=== PATIENT | female | born 1960 | race Caucasian/White ===

== ENCOUNTER 2016-08-31 19:38 | Emergency (ER) | payer MEDICARE, MEDICAID ==
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
[2016-08-31] MEDS ORDERED: ACETAMINOPHEN 325 MG TABLET PO ONE (20:27)
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
[2016-09-01 00:27] VITALS: BP 132/85
== END 2016-08-31 23:10 | disposition home or self-care (01) ==
LOC: ER 19:38
DX: S20.212A Contusion of left front wall of thorax, initial encounter (principal); R51 Headache; M54.2 Cervicalgia; R07.89 Other chest pain; M25.559 Pain in unspecified hip; Y09 Assault by unspecified means; F17.210 Nicotine dependence, cigarettes, uncomplicated
CPT/HCPCS: 99284; 73000; 73502; 72110; 70450; 72125; L0120

== ENCOUNTER 2017-01-14 10:20 | Emergency (ER) | payer MEDICARE, MEDICAID ==
--- NOTE | 2017-01-14 11:47 | ER Document Report ---
ED Hand/Wrist Injury - General Chief Complaint: Hand Pain Stated Complaint: LEFT HAND PAIN Time Seen by Provider: 01/14/17 10:57 Mode of Arrival: Ambulatory Information source: Patient Notes: 56-year-old female presents to ED for complaint of left hand pain 1-2 months. She states it continually getting worse. States she has been to her primary doctor who did not x-ray it or did not do anything and the pain is getting worse. She has a history of bradycardia asthma bronchitis cervical cancer diverticulitis GERD arthritis bursitis OCD anxiety depression and rosacea she also has a history of hep C 10 multiple surgeries. TRAVEL OUTSIDE OF THE [place] IN LAST 30 DAYS: No - HPI Injury to: Thumb - Left Onset: Other Timing: Worse Quality of pain: Sharp, Throbbing Severity: Severe Pain Level: 5 - Related Data Allergies/Adverse Reactions: meloxicam [From Mobic] Allergy (Verified 01/14/17 10:25) methadone [Methadone] Allergy (Verified 01/14/17 10:25) Hives tramadol [Tramadol] Allergy (Verified 01/14/17 10:25) Hives tramadol HCl [From Ultram] Allergy (Verified 01/14/17 10:25) Hives morphine [Morphine] Adverse Reaction (Verified 01/14/17 10:25) itching Past Medical History - General Information source: Patient - Social History Smoking Status: Current Every Day Smoker Cigarette use (# per day): Yes Chew tobacco use (# tins/day): No Smoking Education Provided: Yes - <2 minutes Frequency of alcohol use: Social Drug Abuse: None Lives with: Family Family History: Reviewed & Not Pertinent Patient has suicidal ideation: No Patient has homicidal ideation: No Pulmonary Medical History: Reports: Hx Asthma, Hx Bronchitis, Hx COPD, Hx Pneumonia Neurological Medical History: Reports: None Endocrine Medical History: Reports: None Renal/ Medical History: Reports: Hx Kidney Stones. Denies: Hx Peritoneal Dialysis Malignancy Medical History: Reports: Hx Cervical Cancer GI Medical History: Reports: Hx Diverticulitis, Hx Gastritis, Hx Gastroesophageal Reflux Disease, Hx Hepatitis - c Musculoskeltal Medical History: Reports Hx Arthritis, Reports Hx Musculoskeletal Deformity, Reports Hx Musculoskeletal Trauma - Rotator cuff bilateral , partial toe amputation, Reports Other - Bursitis Skin Medical History: Reports Other - rosea Psychiatric Medical History: Reports: Hx Attention Deficit Hyperactivity Disorder, Hx Bipolar Disorder, Hx Depression, Hx Obsessive Compulsive Disorder Traumatic Medical History: Reports: None Infectious Medical History: Reports: None Past Surgical History: Reports: Hx Section - x1, Hx Cholecystectomy, Hx Hysterectomy, Hx Kidney (Renal Surgery) - stent, Hx Nose Surgery - Sinus repair, Hx Orthopedic Surgery - Right Rotator cuff repair. - Immunizations Immunizations up to date: Yes Hx Diphtheria, Pertussis, Tetanus Vaccination: No - none Review of Systems - Review of Systems Constitutional: No symptoms reported EENT: No symptoms reported Cardiovascular: No symptoms reported Respiratory: No symptoms reported Gastrointestinal: No symptoms reported Genitourinary: No symptoms reported Female Genitourinary: No symptoms reported Musculoskeletal: Other - Thumb and hand pain left Skin: No symptoms reported Hematologic/Lymphatic: No symptoms reported Neurological/Psychological: No symptoms reported -: Yes All other systems reviewed and negative Physical Exam - Vital signs Vitals: Temp Pulse Resp BP Pulse Ox 97.6 F 56 L 20 117/90 H 97 01/14/17 10:29 01/14/17 10:29 01/14/17 10:29 01/14/17 10:29 01/14/17 10:29 Interpretation: Normal - General General appearance: Appears well, Alert - HEENT Head: Normocephalic, Atraumatic Eyes: Normal Pupils: PERRL - Respiratory Respiratory status: No respiratory distress Chest status: Nontender Breath sounds: Normal Chest palpation: Normal - Cardiovascular Rhythm: Regular Heart sounds: Normal auscultation Murmur: No - Abdominal Inspection: Normal Distension: No distension Bowel sounds: Normal Tenderness: Nontender Organomegaly: No organomegaly - Back Back: Normal, Nontender - Extremities General upper extremity: Normal inspection, Normal color, Normal temperature General lower extremity: Normal inspection, Nontender, Normal color, Normal ROM , Normal temperature, Normal weight bearing. No: Umberto's sign Hand: Tender, No evidence of human bite, No evidence of FB, Other - Pain with range of motion to left thumb - Neurological Neuro grossly intact: Yes Cognition: Normal Orientation: AAOx4 Ilya Coma Scale Eye Opening: Spontaneous [place] Coma Scale Verbal: Oriented Ilya Coma Scale Motor: Obeys Commands [place] Coma Scale Total: 15 Speech: Normal Motor strength normal: LUE, RUE, LLE, RLE Sensory: Normal - Psychological Associated symptoms: Normal affect, Normal mood - Skin Skin Temperature: Warm Skin Moisture: Dry Skin Color: Normal Course - Re-evaluation Re-evalutation: 01/14/17 12:18 Discussed x-rays with patient and written report given to patient to follow-up with primary doctor. Patient has arthritis in her thumb she states the other thumb is beginning to feel the same way. - Vital Signs Vital signs: Temp Pulse Resp BP Pulse Ox 97.4 F 52 L 18 113/69 99 01/14/17 12:30 01/14/17 12:30 01/14/17 12:30 01/14/17 12:30 01/14/17 12:30 - Diagnostic Test Radiology reviewed: Image reviewed, Reports reviewed Discharge - Discharge Clinical Impression: Arthritis of carpometacarpal (CMC) joint of left thumb Condition: Stable Disposition: HOME, SELF-CARE Additional Instructions: Arthritis Your symptoms are due to arthritis. Arthritis is an inflammation of the joints. There are many types -- osteoarthritis (due to "wear and tear"), auto- immmune arthritis (such as rheumatoid, lupus, Whit's, and others), and crystal -induced arthritis (such as gout and pseudogout). The physician's examination, combined with laboratory tests, will determine the cause of your arthritis. All types of arthritis are treated with antiinflammatory medications. Other medication may be required for special types of arthritis, or if your problem does not respond to the antiinflammatory medicine. Local warmth may be helpful. Move the involved joints through the full range of motion daily. Mild exercise is usually still possible for most persons with arthritis (ask your physician). Swimming provides good exercise without damaging the joints. Contact the physician if you are worsening in any way. ICE PACKS: Apply ice packs frequently against the painful area. Many different schedules are recommended, such as "20 minutes on, 20 minutes off" or "one hour ice, two hours rest." If you need to work, you may need to go longer between ice treatments. You should plan to have the area ice packed AT LEAST one fourth of the time. The ice should be applied over the wrap, tape, or splint, or over a layer of cloth -- not directly against the skin. Some ice bags have a built-in cloth and can be put directly on the skin. WARM PACKS: After approximately two days, apply gentle heat (such as a heating pad or hot water bottle) for about 20 to 30 minutes about every two hours -- at least four times daily. Warmth and elevation will help you make a more rapid recovery , and will ease the pain considerably. Do not use HOT heat, and never apply heat for longer than 30 minutes. The continuous heat can invisibly damage skin and muscles -- even when no burn is seen on the surface. Damaged muscles can make you MORE sore. FOLLOW-UP CARE: If you have been referred to a physician for follow-up care, call the physician s office for an appointment as you were instructed or within the next two days. If you experience worsening or a significant change in your symptoms, notify the physician immediately or return to the Emergency Department at any time for re-evaluation. Forms: Elevated Blood Pressure, Smoking Cessation Education, Return to School Referrals: LUCIANO KEARNEY MD [Primary Care Provider] - Follow up as needed
--- NOTE | 2017-01-14 12:05 | RADIOLOGY REPORT (SQ) ---
EXAM DESCRIPTION: HAND LEFT 3 VIEWS COMPLETED DATE/TIME: 01/14/2017 11:52 am REASON FOR STUDY: pain COMPARISON: None. EXAM PARAMETERS: NUMBER OF VIEWS: Three views. TECHNIQUE: AP, lateral and oblique radiographic images acquired of the left hand. LIMITATIONS: None. FINDINGS: MINERALIZATION: Normal. BONES: No acute fracture or dislocation. No worrisome bone lesions. Degenerative changes at the 1st c arpometacarpal joint with mild sclerosis. No significant osteophytes. JOINTS: No erosions. No neto-articular osteopenia. No chondrocalcinosis. SOFT TISSUES: No swelling. No calcifications. OTHER: No other significant finding. IMPRESSION: MILD DEGENERATIVE CHANGE AT THE BASE OF THUMB. NO ACUTE FINDINGS. TECHNICAL DOCUMENTATION: JOB ID: [id number] [employer]- All Rights Reserved
--- NOTE | 2017-01-14 12:06 | RADIOLOGY REPORT (SQ) ---
EXAM DESCRIPTION: WRIST LEFT 3 VIEWS COMPLETED DATE/TIME: 01/14/2017 11:52 am REASON FOR STUDY: pain COMPARISON: None. NUMBER OF VIEWS: Four views. TECHNIQUE: AP, lateral, oblique, and scaphoid radiographic images acquired of the left wrist. LIMITATIONS: None. FINDINGS: MINERALIZATION: Normal. BONES: No acute fracture or dislocation. No worrisome bone lesions. Normal alignment. Degenerative ch anges of 1st carpometacarpal joint with sclerosis and osteophytes. JOINTS: No erosions. No neto-articular osteopenia. No chondrocalcinosis. SOFT TISSUES: No swelling. No calcifications. OTHER: No other significant finding. IMPRESSION: DEGENERATIVE CHANGES AT THE BASE OF THE THUMB. NO ACUTE FINDINGS. TECHNICAL DOCUMENTATION: JOB ID: [id number] [employer]- All Rights Reserved
[2017-01-14 12:39] VITALS: BP 113/69
== END 2017-01-14 12:39 | disposition home or self-care (01) ==
LOC: ER 10:20
DX: M18.9 Osteoarthritis of first carpometacarpal joint, unspecified (principal); M79.642 Pain in left hand; F17.210 Nicotine dependence, cigarettes, uncomplicated; J45.909 Unspecified asthma, uncomplicated; K21.9 Gastro-esophageal reflux disease without esophagitis; J44.9 Chronic obstructive pulmonary disease, unspecified; Z87.442 Personal history of urinary calculi; Z88.6 Allergy status to analgesic agent; Z85.41 Personal history of malignant neoplasm of cervix uteri; Z86.19 Personal history of other infectious and parasitic diseases
CPT/HCPCS: 99283

== ENCOUNTER 2017-04-05 16:44 | Emergency (ER) | payer MEDICARE, MEDICAID ==
[2017-04-05] MEDS ORDERED: LIDOCAINE 5% (700 MG) TRANSDERMAL ADH..PATCH TP ONE (17:23)
[2017-04-05] MEDS ORDERED: DEXAMETHASONE SOD PHOS INJ 10 MG/1 ML VIAL IM ONE (17:23)
[2017-04-05] MEDS ORDERED: KETOROLAC TROMETHAMINE 60 MG/2 ML SDV IM ONE (17:23)
--- NOTE | 2017-04-05 17:31 | ER Document Report ---
ED Neck/Back Problem - General Chief Complaint: Hip Pain Stated Complaint: HIP/LEG PAIN Time Seen by Provider: 04/05/17 17:09 Mode of Arrival: Ambulatory Information source: Patient Notes: 56-year-old TRAVEL OUTSIDE OF THE [place] IN LAST 30 DAYS: No - HPI Patient complains to provider of: Lower back Onset: Other - chronic Onset: Chronic Quality of pain: Burning, Sharp, Throbbing Severity: Severe Pain Level: 5 Recent injury: No Associated symptoms: Like prior neck/back pain, Numbness/tingling, Radiation to leg, Lower back pain. denies: Incontinence, Motor loss, Sensory loss, Sweaty, Unable to urinate Exacerbated by: Movement of trunk, Sitting position Relieved by: Nothing Similar symptoms previously: Yes Recently seen / treated by doctor: Yes - Related Data Allergies/Adverse Reactions: meloxicam [From Mobic] Allergy (Verified 01/14/17 10:25) methadone [Methadone] Allergy (Verified 01/14/17 10:25) Hives tramadol [Tramadol] Allergy (Verified 01/14/17 10:25) Hives tramadol HCl [From Ultram] Allergy (Verified 01/14/17 10:25) Hives morphine [Morphine] Adverse Reaction (Verified 01/14/17 10:25) itching Past Medical History - General Information source: Patient - Social History Smoking Status: Current Every Day Smoker - 1 1/2 ppd Cigarette use (# per day): Yes Chew tobacco use (# tins/day): No Smoking Education Provided: Yes - less than 2 min Frequency of alcohol use: None Drug Abuse: None Lives with: Spouse/Significant other Family History: Reviewed & Not Pertinent Patient has suicidal ideation: No Patient has homicidal ideation: No - Medical History Medical History: Other - Past Medical History Cardiac Medical History: Reports: None Pulmonary Medical History: Reports: Hx Asthma, Hx Bronchitis, Hx COPD, Hx Pneumonia EENT Medical History: Reports: None Neurological Medical History: Reports: None Endocrine Medical History: Reports: None Renal/ Medical History: Reports: Hx Kidney Stones Malignancy Medical History: Reports: Hx Cervical Cancer GI Medical History: Reports: Hx Diverticulitis, Hx Gastritis, Hx Gastroesophageal Reflux Disease, Hx Hepatitis - c Musculoskeltal Medical History: Reports Hx Arthritis, Reports Hx Musculoskeletal Deformity, Reports Hx Musculoskeletal Trauma - Rotator cuff bilateral , partial toe amputation Skin Medical History: Reports None Psychiatric Medical History: Reports: Hx Attention Deficit Hyperactivity Disorder, Hx Bipolar Disorder, Hx Depression, Hx Obsessive Compulsive Disorder Traumatic Medical History: Reports: None Infectious Medical History: Reports: Hx Hepatitis - c Past Surgical History: Reports: Hx Section - x1, Hx Cholecystectomy, Hx Hysterectomy, Hx Kidney (Renal Surgery) - stent, Hx Nose Surgery - Sinus repair, Hx Orthopedic Surgery - Right Rotator cuff repair. - Immunizations Immunizations up to date: Yes Hx Diphtheria, Pertussis, Tetanus Vaccination: No - none Review of Systems - Review of Systems Constitutional: No symptoms reported EENT: No symptoms reported Cardiovascular: No symptoms reported Respiratory: No symptoms reported Gastrointestinal: No symptoms reported Genitourinary: No symptoms reported Female Genitourinary: No symptoms reported Musculoskeletal: Back pain, Muscle pain Skin: No symptoms reported Hematologic/Lymphatic: No symptoms reported Neurological/Psychological: No symptoms reported Physical Exam - Vital signs Vitals: Temp Pulse Resp BP Pulse Ox 97.7 F 54 L 16 120/56 L 97 04/05/17 17:01 04/05/17 17:01 04/05/17 17:01 04/05/17 17:01 04/05/17 17:01 Interpretation: Normal - General General appearance: Appears well, Alert - HEENT Head: Normocephalic, Atraumatic Eyes: Normal Pupils: PERRL - Respiratory Respiratory status: No respiratory distress Chest status: Nontender Breath sounds: Normal Chest palpation: Normal - Cardiovascular Rhythm: Regular Heart sounds: Normal auscultation Murmur: No - Abdominal Inspection: Normal Distension: No distension Bowel sounds: Normal Tenderness: Nontender Organomegaly: No organomegaly - Back Back: Normal, Tender. No: Deformity/step-off, CVA tenderness, Vertebra tenderness, Scars, Scoliosis, Wounds - Extremities General upper extremity: Normal inspection, Nontender, Normal color, Normal ROM , Normal temperature General lower extremity: Normal inspection, Nontender, Normal color, Normal ROM , Normal temperature, Normal weight bearing. No: Umberto's sign - Neurological Neuro grossly intact: Yes Cognition: Normal Orientation: AAOx4 Ilya Coma Scale Eye Opening: Spontaneous [place] Coma Scale Verbal: Oriented Ilya Coma Scale Motor: Obeys Commands [place] Coma Scale Total: 15 Speech: Normal Motor strength normal: LUE, RUE, LLE, RLE Sensory: Normal - Psychological Associated symptoms: Normal affect, Normal mood - Skin Skin Temperature: Warm Skin Moisture: Dry Skin Color: Normal Course - Re-evaluation Re-evalutation: 04/05/17 21:26 No signs or symptoms of cauda equina, no loss of sensation, no loss of control of bowel or bladder, no loss of control of legs muscle control. No signs of saddle anesthesia, patient is able to walk with a steady gait. - Vital Signs Vital signs: Temp Pulse Resp BP Pulse Ox 97.9 F 56 L 16 118/50 L 96 04/05/17 18:46 04/05/17 18:46 04/05/17 18:46 04/05/17 18:46 04/05/17 18:46 - Diagnostic Test Radiology reviewed: Image reviewed, Reports reviewed Discharge - Discharge Clinical Impression: Low back pain Qualifiers: Chronicity: chronic Back pain laterality: bilateral Sciatica presence: with sciatica Sciatica laterality: sciatica of left side Qualified Code(s): M54.42 - Lumbago with sciatica, left side Condition: Stable Disposition: HOME, SELF-CARE Instructions: Stretching Exercises for the Back ([facility]), Family Physicians / Practices, Use of [id number] Ibuprofen ([facility]) Additional Instructions: LOW BACK PAIN: Three out of every four people will have an episode of disabling back pain during their lifetime. Most commonly the pain is due to straining of the muscles and ligaments in the low back. Usual treatment includes: (1) Rest on a firm surface. Avoid lying on your stomach. (2) Ice pack the painful area. After a few days, gentle heat may be used intermittently to relax the area, or ice packs can be continued. (3) Medication may be needed -- muscle relaxers and antiinflammatory medicines are commonly used. (4) As the back improves, exercises are prescribed to strengthen the back and abdominal muscles. Your doctor will advise you on the proper care for your back at each stage in your recovery. You may be better in a few days -- or healing may take several weeks. If new symptoms of a "herniated disc" (radiation of pain, numbness, or tingling down the back of the leg or weakness in the leg) occur, you should be re-examined. Further testing may be necessary. Ibuprofen Ibuprofen is an excellent, safe drug for pain control. In addition, it has potent antiinflammatory effects which are beneficial, especially in the treatment of injuries, arthritis, or tendonitis. It's best to take ibuprofen with food. Persons with ulcer disease or allergy to aspirin should notify their physician of this before taking ibuprofen. Take the medication exactly as prescribed. Don't take additional doses unless instructed to do so by your doctor. If you develop wheezing, shortness of breath, hives, faintness, stomach pain, vomiting, or dark black stools, return for re-evaluation at once. ICE PACKS: Apply ice packs frequently against the painful area. Many different schedules are recommended, such as "20 minutes on, 20 minutes off" or "one hour ice, two hours rest." If you need to work, you may need to go longer between ice treatments. You should plan to have the area ice packed AT LEAST one fourth of the time. The ice should be applied over the wrap, tape, or splint, or over a layer of cloth -- not directly against the skin. Some ice bags have a built-in cloth and can be put directly on the skin. WARM PACKS: After approximately two days, apply gentle heat (such as a heating pad or hot water bottle) for about 20 to 30 minutes about every two hours -- at least four times daily. Warmth and elevation will help you make a more rapid recovery , and will ease the pain considerably. Do not use HOT heat, and never apply heat for longer than 30 minutes. The continuous heat can invisibly damage skin and muscles -- even when no burn is seen on the surface. Damaged muscles can make you MORE sore. Toradol Injection You have been given an injection of ketorolac tromethamine (Toradol). This is an excellent, safe drug for pain control. It also has potent antiinflammatory action. You should have significant pain relief within about one hour. Toradol is not addicting and is non-sedating. It does not interfere with driving or work. Call or return if you develop itching, hives, shortness of breath, or rash. STEROID MEDICATION: You have been given an injection of medicine of the cortisone/steroid class. This medication is used to control inflammation or allergy. It is often continued as a pill for a short period of time, until the acute process subsides. There are usually no side effects from short-term use of cortisone-like medications. Some persons feel an increased sense of well-being and are not sleepy at bedtime. Long-term use of cortisone medications is best avoided, unless required for a severe condition. If your condition does not remit, or relapses after the course of corticosteroid medication, you should consult your physician. FOLLOW-UP CARE: If you have been referred to a physician for follow-up care, call the physician s office for an appointment as you were instructed or within the next two days. If you experience worsening or a significant change in your symptoms, notify the physician immediately or return to the Emergency Department at any time for re-evaluation. Prescriptions: Lidocaine [Lidoderm 5% (700 mg) Transdermal Patch] 1 patch TP DAILY #30 adh..patch Forms: Smoking Cessation Education Referrals: LUCIANO KEARNEY MD [Primary Care Provider] - Follow up as needed
--- NOTE | 2017-04-05 18:08 | RADIOLOGY REPORT (SQ) ---
EXAM DESCRIPTION: L SPINE WHOLE COMPLETED DATE/TIME: 04/05/2017 5:53 pm REASON FOR STUDY: low back pain radiating down left leg COMPARISON: 04/10/2017 NUMBER OF VIEWS: Five views including obliques. TECHNIQUE: AP, lateral, oblique, and sacral radiographic images acquired of the lumbar spine. LIMITATIONS: None. FINDINGS: MINERALIZATION: Normal. SEGMENTATION: Normal. No transitional anatomy. ALIGNMENT: Normal. VERTEBRAE: Maintained height. No fracture or worrisome bone lesion. DISCS: Multilevel disc space narrowing with osteophytes. POSTERIOR ELEMENTS: Pedicles and facets are intact. No pars defect or posterior arch defects. Facet arthropathy is present. HARDWARE: None in the spine. PARASPINAL SOFT TISSUES: Normal. PELVIS: Intact as visualized. No fractures or worrisome bone lesions. SI joints intact. OTHER: No other significant finding. IMPRESSION: SPONDYLOSIS WITHOUT BONE LESION OR FRACTURE. TECHNICAL DOCUMENTATION: JOB ID: [id number] [employer]- All Rights Reserved
[2017-04-05 18:49] VITALS: BP 118/50
== END 2017-04-05 18:48 | disposition home or self-care (01) ==
LOC: ER 16:44
DX: G89.29 Other chronic pain (principal); M54.42 Lumbago with sciatica, left side; J44.9 Chronic obstructive pulmonary disease, unspecified; F17.210 Nicotine dependence, cigarettes, uncomplicated; Z71.6 Tobacco abuse counseling; Z88.5 Allergy status to narcotic agent; Z88.8 Allergy status to other drugs, medicaments and biological substances; Z85.41 Personal history of malignant neoplasm of cervix uteri
CPT/HCPCS: 99283; 96372; 72110; J1885; J1100

== ENCOUNTER 2017-08-20 09:21 | Emergency (ER) | payer MEDICARE, MEDICAID ==
[2017-08-20 09:28] VITALS: BP 117/65
[2017-08-20] MEDS ORDERED: CETIRIZINE 10 MG TABLET PO ONE (10:09)
[2017-08-20] MEDS ORDERED: PSEUDOEPHEDRINE HCL 30 MG TABLET PO ONE (10:09)
[2017-08-20] MEDS ORDERED: GUAIFENESIN 600 MG TABLET.SA PO ONE (10:09)
--- NOTE | 2017-08-20 10:13 | ER Document Report ---
ED ENT - General Chief Complaint: Pain All Over Stated Complaint: BODY ACHES Time Seen by Provider: 08/20/17 09:58 Mode of Arrival: Ambulatory Information source: Patient Notes: 57-year-old female presents to ED for complaint of body aches all over runny nose cough congestion. She states she has taken some Tylenol and Flonase for her cough and cold symptoms but she thought she needed some antibiotics. I evaluated her and ask her about any fevers. She states she has not taken her temperature and she does not have any fever at this time. TRAVEL OUTSIDE OF THE [place] IN LAST 30 DAYS: No - HPI Patient complains to provider of: Nose problem, Throat problem Onset: Other Quality of pain: Achy Severity: Moderate Pain Level: 4 Context: Recent Illness Location of pain: Nose, Sinus, Throat Associated symptoms: Congestion, Cough, Runny nose, Sinus pain, Sinus drainage. denies: Chills, Fever Similar symptoms previously: Yes Recently seen / treated by doctor: No - Related Data Allergies/Adverse Reactions: meloxicam [From Mobic] Allergy (Verified 08/20/17 09:25) methadone [Methadone] Allergy (Verified 08/20/17 09:25) Hives pregabalin [From Lyrica] Allergy (Verified 08/20/17 09:41) morphine [Morphine] Adverse Reaction (Verified 08/20/17 09:25) itching Past Medical History - General Information source: Patient - Social History Smoking Status: Current Every Day Smoker Cigarette use (# per day): Yes - 1/2-1 pack per day Chew tobacco use (# tins/day): No Smoking Education Provided: Yes - 3 minutes Frequency of alcohol use: None Drug Abuse: None Lives with: Spouse/Significant other Family History: Reviewed & Not Pertinent Patient has suicidal ideation: No Patient has homicidal ideation: No - Past Medical History Cardiac Medical History: Reports: None Pulmonary Medical History: Reports: Hx Asthma, Hx Bronchitis, Hx COPD, Hx Pneumonia EENT Medical History: Reports: None Neurological Medical History: Reports: None Endocrine Medical History: Reports: None Renal/ Medical History: Reports: Hx Kidney Stones Malignancy Medical History: Reports: Hx Cervical Cancer GI Medical History: Reports: Hx Diverticulitis, Hx Gastritis, Hx Gastroesophageal Reflux Disease, Hx Hepatitis - c Musculoskeltal Medical History: Reports Hx Arthritis, Reports Hx Musculoskeletal Deformity, Reports Hx Musculoskeletal Trauma - Rotator cuff bilateral , partial toe amputation Skin Medical History: Reports None Psychiatric Medical History: Reports: Hx Attention Deficit Hyperactivity Disorder, Hx Bipolar Disorder, Hx Depression, Hx Obsessive Compulsive Disorder Traumatic Medical History: Reports: None Infectious Medical History: Reports: Hx Hepatitis - c Past Surgical History: Reports: Hx Section - x1, Hx Cholecystectomy, Hx Hysterectomy, Hx Kidney (Renal Surgery) - stent, Hx Nose Surgery - Sinus repair, Hx Orthopedic Surgery - Right Rotator cuff repair. - Immunizations Immunizations up to date: Yes Hx Diphtheria, Pertussis, Tetanus Vaccination: No - none Review of Systems - Review of Systems Constitutional: No symptoms reported EENT: Nose congestion, Nose discharge, Sinus pressure, Sinus discharge, Throat pain Cardiovascular: No symptoms reported Respiratory: Cough. denies: Short of breath, Wheezing Gastrointestinal: No symptoms reported Genitourinary: No symptoms reported Female Genitourinary: No symptoms reported Musculoskeletal: No symptoms reported Skin: No symptoms reported Hematologic/Lymphatic: No symptoms reported Neurological/Psychological: No symptoms reported -: Yes All other systems reviewed and negative Physical Exam - Vital signs Vitals: Temp Pulse Resp BP Pulse Ox 97.9 F 68 18 117/65 95 08/20/17 09:28 08/20/17 09:28 08/20/17 09:28 08/20/17 09:28 08/20/17 09:28 Interpretation: Normal - General General appearance: Appears well, Alert - HEENT Head: Normocephalic, Atraumatic Eyes: Normal Pupils: PERRL Ears: Normal External canal: Normal Tympanic membrane: Normal Sinus: Mastoid, Maxillary, Tenderness Nasal: Purulent discharge, Swelling Mouth/Lips: Normal Mucous membranes: Normal Pharynx: Post nasal drainage Neck: Normal - Respiratory Respiratory status: No respiratory distress Chest status: Nontender Breath sounds: Nonproductive cough. No: Rales, Rhonchi, Stridor, Wheezing Chest palpation: Normal - Cardiovascular Rhythm: Regular Heart sounds: Normal auscultation Murmur: No - Abdominal Inspection: Normal Distension: No distension Bowel sounds: Normal Tenderness: Nontender Organomegaly: No organomegaly - Back Back: Normal, Nontender - Extremities General upper extremity: Normal inspection, Nontender, Normal color, Normal ROM , Normal temperature General lower extremity: Normal inspection, Nontender, Normal color, Normal ROM , Normal temperature, Normal weight bearing. No: Umberto's sign - Neurological Neuro grossly intact: Yes Cognition: Normal Orientation: AAOx4 [place] Coma Scale Eye Opening: Spontaneous [place] Coma Scale Verbal: Oriented [place] Coma Scale Motor: Obeys Commands [place] Coma Scale Total: 15 Speech: Normal Motor strength normal: LUE, RUE, LLE, RLE Sensory: Normal - Psychological Associated symptoms: Normal affect, Normal mood - Skin Skin Temperature: Warm Skin Moisture: Dry Skin Color: Normal Course - Re-evaluation Re-evalutation: 08/20/17 15:55 Assessment was consistent with a upper respiratory infection. Patient was given instructions concerning upper respiratory infections and treatment. Patient was discharged home to follow-up with her primary doctor. - Vital Signs Vital signs: Temp Pulse Resp BP Pulse Ox 97.9 F 68 18 117/65 95 08/20/17 09:28 08/20/17 09:28 08/20/17 09:28 08/20/17 09:28 08/20/17 09:28 Discharge - Discharge Clinical Impression: URI (upper respiratory infection) Qualifiers: URI type: unspecified URI Qualified Code(s): J06.9 - Acute upper respiratory infection, unspecified Condition: Stable Disposition: HOME, SELF-CARE Additional Instructions: UPPER RESPIRATORY ILLNESS: You have a viral infection of the respiratory passages -- a "cold." This common infection causes nasal congestion, drainage, and often sore throat and cough. It is highly contagious. The disease usually lasts about 10 to 14 days. There is no "cure" for the viral infection -- it must run its course. If there is a complication, such as bacterial infection in the nose, sinuses, middle ear, or bronchial tubes, antibiotics may be required. The antibiotics won't affect the virus. Drink plenty of fluids. A humidifier may help. An expectorant medication or decongestant may make you more comfortable. Use acetaminophen or ibuprofen for fever or aches. See the doctor if fever persists over two days, if there is any significant worsening of your symptoms, or if you simply fail to improve as expected. DECONGESTANT MEDICATION: A decongestant medicine has been suggested. Often this medicine is combined in the same tablet with an antihistamine or expectorant. This type of medicine is helpful in treating a bad cold or sinus condition, as well as in treatment of the nasal congestion of hay fever. It is not of much benefit for lung infections. Decongestant medicines are related to stimulants. They can cause an increase in blood pressure and heart rate. Persons with heart disease and high blood pressure should not take decongestants without discussing this with the physician. If you develop palpitations, chest pain, headache, or tremors, stop the medicine and consult your physician. COUGH-SUPPRESSANT & EXPECTORANT MEDICATION: You are to use a cough medication as needed for relief of symptoms. This medicine is a combination of an expectorant (to make the mucous thinner and more easily "coughed up") and a cough suppressant (to reduce the frequency of coughing). The cough-suppressant medicine is related to narcotics. You may experience mild nausea and sleepiness. Some patients who are very sensitive to narcotics may have stomach pain from this medicine. Taking the medicine with food reduces these side effects. Do not drive or work with machinery until you know how this medicine affects you. The expectorant should have no side effects. Iodine-containing expectorants (such as organidin) should not be taken by persons with active thyroid disease unless approved by your doctor. Call the doctor if you develop shortness of breath, hives, rash, itching, lightheadedness, or severe nausea and vomiting. USE OF ACETAMINOPHEN (Tylenol): Acetaminophen may be taken for pain relief or fever control. It's much safer than aspirin, offering a wider range of "safe" dosages. It is safe during . Some brand names are Tylenol, Panadol, Datril, Anacin 3, Tempra, and Liquiprin. Acetaminophen can be repeated every four hours. The following are maximum recommended dosages: >89 pounds or adults 650 mg to 900 mg Acetaminophen can be repeated every four hours. Maximum dose not to exceed 4000 mg a day. SMOKING: If you smoke, you should stop smoking. The tar and chemicals in cigarette smoke are harmful. Smoking has been shown to cause: emphysema chronic bronchitis lung cancer mouth and throat cancer stomach and pancreas cancer premature aging defects In addition, smoking increases ear and lung infections in children of smokers. FOLLOW-UP CARE: If you have been referred to a physician for follow-up care, call the physician s office for an appointment as you were instructed or within the next two days. If you experience worsening or a significant change in your symptoms, notify the physician immediately or return to the Emergency Department at any time for re-evaluation. Forms: Smoking Cessation Education Referrals: ZULLY JOVEL PA [Primary Care Provider] - Follow up as needed
== END 2017-08-20 10:22 | disposition home or self-care (01) ==
LOC: ER 09:21
DX: J06.9 Acute upper respiratory infection, unspecified (principal); M79.1 Myalgia; R09.89 Other specified symptoms and signs involving the circulatory and respiratory systems; R05 Cough; F17.210 Nicotine dependence, cigarettes, uncomplicated
CPT/HCPCS: 99283; A9270 ×3

== ENCOUNTER 2017-10-20 19:35 | Emergency (ER) | payer MEDICARE, MEDICAID ==
--- NOTE | 2017-10-20 20:13 | ER Document Report ---
ED Medical Screen (RME) - General Chief Complaint: Dog Bite Stated Complaint: DOG BITE/LEFT ARM Time Seen by Provider: 10/20/17 20:12 Mode of Arrival: Ambulatory Information source: Patient Notes: 57 yr old female presents with dog bite to left arm, hx of hep c I have greeted and performed a rapid initial assessment of this patient. A comprehensive ED assessment and evaluation of the patient, analysis of test results and completion of the medical decision making process will be conducted by additional ED providers. Noted by PCT that when undressing wound began having arterial bleed will straight back patient TRAVEL OUTSIDE OF THE [place] IN LAST 30 DAYS: No - Related Data Allergies/Adverse Reactions: meloxicam [From Mobic] Allergy (Verified 08/20/17 09:25) methadone [Methadone] Allergy (Verified 08/20/17 09:25) Hives pregabalin [From Lyrica] Allergy (Verified 08/20/17 09:41) morphine [Morphine] Adverse Reaction (Verified 08/20/17 09:25) itching Past Medical History - Social History Family history: Reviewed & Not Pertinent Pulmonary Medical History: Reports: Hx Asthma, Hx Bronchitis, Hx COPD, Hx Pneumonia Renal/ Medical History: Reports: Hx Kidney Stones. Denies: Hx Peritoneal Dialysis Malignancy Medical History: Reports: Hx Cervical Cancer GI Medical History: Reports: Hx Diverticulitis, Hx Gastritis, Hx Gastroesophageal Reflux Disease, Hx Hepatitis - c Musculoskeltal Medical History: Reports Hx Arthritis, Reports Hx Musculoskeletal Deformity, Reports Hx Musculoskeletal Trauma - Rotator cuff bilateral , partial toe amputation Psychiatric Medical History: Reports: Hx Attention Deficit Hyperactivity Disorder, Hx Bipolar Disorder, Hx Depression, Hx Obsessive Compulsive Disorder Infectious Medical History: Reports: Hx Hepatitis - c Past Surgical History: Reports: Hx Section - x1, Hx Cholecystectomy, Hx Hysterectomy, Hx Kidney (Renal Surgery) - stent, Hx Nose Surgery - Sinus repair, Hx Orthopedic Surgery - Right Rotator cuff repair. - Immunizations Immunizations up to date: Yes Hx Diphtheria, Pertussis, Tetanus Vaccination: No - none Physical Exam - Vital signs Vitals: Temp Pulse Resp BP Pulse Ox 97.7 F 58 L 18 118/61 96 10/20/17 19:54 10/20/17 19:54 10/20/17 19:54 10/20/17 19:54 10/20/17 19:54 Course - Vital Signs Vital signs: Temp Pulse Resp BP Pulse Ox 97.7 F 58 L 18 118/61 96 10/20/17 19:54 10/20/17 19:54 10/20/17 19:54 10/20/17 19:54 10/20/17 19:54
[2017-10-20] MEDS ORDERED: DIPH/PERTUSS(ACELL)/TETANUS VAC/PF 0.5 ML SYR (>=10YO) IM ONE (20:34)
[2017-10-20] MEDS ORDERED: LIDOCAINE 1%/EPINEPHRINE INJ 20 ML VIAL INJ ONE (20:35)
[2017-10-20] MEDS ORDERED: AMOXICILLIN TR/POT CLAVULANATE 500-125 MG TAB PO ONE (20:36)
[2017-10-20] MEDS ORDERED: AMOXICILLIN TRIHYDRATE 500 MG CAPSULE PO ONE (20:37)
--- NOTE | 2017-10-20 20:38 | ER Document Report ---
ED Animal Bite - General Chief Complaint: Dog Bite Stated Complaint: DOG BITE/LEFT ARM Time Seen by Provider: 10/20/17 20:12 Mode of Arrival: Ambulatory Notes: Patient is a 57-year-old female comes emergency department for chief complaint of laceration to her left forearm from dog bite. Dog is a pit bull, her personal pet, dog is up-to-date on vaccinations including rabies. Patient is not up-to-date on her tetanus within 5 years. Patient denies any other locations of injury. Patient has history of hepatitis C. TRAVEL OUTSIDE OF THE [place] IN LAST 30 DAYS: No - Related Data Allergies/Adverse Reactions: meloxicam [From Mobic] Allergy (Verified 08/20/17 09:25) methadone [Methadone] Allergy (Verified 08/20/17 09:25) Hives pregabalin [From Lyrica] Allergy (Verified 08/20/17 09:41) morphine [Morphine] Adverse Reaction (Verified 08/20/17 09:25) itching Past Medical History - General Information source: Patient - Social History Smoking Status: Never Smoker Frequency of alcohol use: None Lives with: Family Family History: Reviewed & Not Pertinent Pulmonary Medical History: Reports: Hx Asthma, Hx Bronchitis, Hx COPD, Hx Pneumonia Renal/ Medical History: Reports: Hx Kidney Stones. Denies: Hx Peritoneal Dialysis Malignancy Medical History: Reports: Hx Cervical Cancer GI Medical History: Reports: Hx Diverticulitis, Hx Gastritis, Hx Gastroesophageal Reflux Disease, Hx Hepatitis - c Musculoskeltal Medical History: Reports Hx Arthritis, Reports Hx Musculoskeletal Deformity, Reports Hx Musculoskeletal Trauma - Rotator cuff bilateral , partial toe amputation Psychiatric Medical History: Reports: Hx Attention Deficit Hyperactivity Disorder, Hx Bipolar Disorder, Hx Depression, Hx Obsessive Compulsive Disorder Infectious Medical History: Reports: Hx Hepatitis - c Past Surgical History: Reports: Hx Section - x1, Hx Cholecystectomy, Hx Hysterectomy, Hx Kidney (Renal Surgery) - stent, Hx Nose Surgery - Sinus repair, Hx Orthopedic Surgery - Right Rotator cuff repair. - Immunizations Immunizations up to date: No Hx Diphtheria, Pertussis, Tetanus Vaccination: Yes Review of Systems - Review of Systems Constitutional: No symptoms reported EENT: No symptoms reported Cardiovascular: No symptoms reported Respiratory: No symptoms reported Gastrointestinal: No symptoms reported Genitourinary: No symptoms reported Female Genitourinary: No symptoms reported Musculoskeletal: See HPI Skin: See HPI Hematologic/Lymphatic: No symptoms reported Neurological/Psychological: No symptoms reported Physical Exam - Vital signs Vitals: Temp Pulse Resp BP Pulse Ox 97.7 F 58 L 18 118/61 96 10/20/17 19:54 10/20/17 19:54 10/20/17 19:54 10/20/17 19:54 10/20/17 19:54 - General General appearance: Anxious In distress: None - HEENT Head: Normocephalic, Atraumatic Eyes: Normal Pupils: PERRL - Respiratory Respiratory status: No respiratory distress Breath sounds: Normal - Cardiovascular Rhythm: Regular. No: Tachycardia Heart sounds: Normal auscultation, S1 appreciated, S2 appreciated - Abdominal Inspection: Normal Tenderness: Nontender - Back Back: Normal, Nontender. No: Tender - Extremities General upper extremity: Other - Left upper forearm over the volar surface there is a vertical semi-linear jagged partial-thickness laceration that is 4 cm in length and also about 1 cm wide, bleeding heavily. Normal elbow exam, wrist exam, normal junior mechanical engineer, normal pulse and sensation, normal capillary refill. General lower extremity: Normal inspection, Nontender, Normal strength, Normal temperature Course - Re-evaluation Re-evalutation: Tourniquet was placed because of possible arterial bleed, this was tightened and then slowly released while the wound was observed, wound does bleed heavily but no arterial spurting is seen on my evaluation. Swelling and pain of the area, x-ray will be performed, tetanus updated, wound will be cleansed thoroughly and closed because of gaping wound and bleeding. Treating with Augmentin. X-ray with no foreign body or fracture. Wound flushed, cleansed, closed. No evidence of large vessel, tendon, or nerve injury. Bulky dressing applied but only small oozing occurring from the abrasions over the surface and no additional swelling or additional bleeding noted. Patient placed on Augmentin. Wound was rechecked and has stopped bleeding, no significant swelling, no evidence of developing compartment syndrome. Patient will be discharged with return precautions. I discussed with patient that there is a higher risk of infection because the wound had to be closed because of her bleeding, I discussed monitoring, wound care, follow-up, and return precautions. Patient states understanding and agreement. - Vital Signs Vital signs: Temp Pulse Resp BP Pulse Ox 97.9 F 65 18 126/82 H 97 10/20/17 22:43 10/20/17 22:43 10/20/17 22:43 10/20/17 22:43 10/20/17 22:43 Procedures - Laceration/Wound Repair Left forearm Wound length (cm): 4 Wound's Depth, Shape: Irregular Laceration pre-procedure: Sterile PPE donned, Sterile drapes applied, Shur- Clens applied Anesthetic type: 1% Lidocaine w/epi Volume Anesthetic (mLs): 8 Wound explored: Clean, No foreign body removed Irrigated w/ Saline (mLs): 60 Wound Debrided: Minimal Wound Repaired With: Sutures Suture Size/Type: 4:0, Nylon Number of Sutures: 10 Layer Closure?: No Post-procedure wound care: Sterile dressing applied Post-procedure NV exam normal: Yes Complications: No Discharge - Discharge Clinical Impression: Dog bite Qualifiers: Encounter type: initial encounter Qualified Code(s): W54.0XXA - Bitten by dog, initial encounter Laceration of left forearm Qualifiers: Encounter type: initial encounter Qualified Code(s): S51.812A - Laceration without foreign body of left forearm, initial encounter Condition: Stable Disposition: HOME, SELF-CARE Additional Instructions: Take antibiotic as prescribed to completion. Because of the bleeding of the wound unfortunately the wound had to be closed, as result infection risk is higher, keep wound clean, keep topical antibiotic and a thin film of the area, keep clean dressing over the area. Check regularly , return immediately if you worsen in anyway including developing or spreading redness, discolored drainage, swelling, fever 100.4 or greater, or any other concerning symptoms. Prescriptions: Amox Tr/Potassium Clavulanate [Augmentin 875-125 Tablet] 1 tab PO BID 7 Days tablet
[2017-10-20] MEDS ORDERED: ONDANSETRON 4 MG TAB.RAPDIS PO ONE (20:40)
--- NOTE | 2017-10-20 21:03 | RADIOLOGY REPORT (SQ) ---
EXAM DESCRIPTION: FOREARM LEFT COMPLETED DATE/TIME: 10/20/2017 8:50 pm REASON FOR STUDY: dog bite, pain, swelling COMPARISON: None. NUMBER OF VIEWS: Two views. TECHNIQUE: Two radiographic images acquired of the left forearm, including elbow and wrist in at [facility] one projection. LIMITATIONS: None. FINDINGS: MINERALIZATION: Normal. BONES: No acute fracture. No worrisome bone lesions. SOFT TISSUES: No obvious foreign body. Soft tissue defect. OTHER: No other significant finding. IMPRESSION: No foreign body. No fracture. Soft tissue defect. TECHNICAL DOCUMENTATION: JOB ID: [id number] [employer]- All Rights Reserved Reading location - IP/workstation name: [email or web address]
[2017-10-20] MEDS ORDERED: HYDROCODONE/ACETAMINOPHEN 5-325 MG (6 TAB/ER DISP) PO PRN (22:22)
[2017-10-20 22:46] VITALS: BP 126/82
== END 2017-10-20 22:43 | disposition home or self-care (01) ==
LOC: ER 19:35
DX: S51.852A Open bite of left forearm, initial encounter (principal); W54.0XXA Bitten by dog, initial encounter; Y93.K9 Activity, other involving animal care; Y92.009 Unspecified place in unspecified non-institutional (private) residence as the place of occurrence of the external cause; J44.9 Chronic obstructive pulmonary disease, unspecified; Z88.5 Allergy status to narcotic agent; Z88.8 Allergy status to other drugs, medicaments and biological substances; Z85.41 Personal history of malignant neoplasm of cervix uteri
CPT/HCPCS: 99283; 90471; 73090; 90715; 12002; A9270 ×4; J3490; S0119

== ENCOUNTER 2017-10-28 18:03 | Emergency (ER) | payer MEDICARE, MEDICAID ==
[2017-10-28] MEDS ORDERED: PIPERACILLIN/TAZOBACTAM 3.375 GM VIAL IV ONE (18:56)
--- NOTE | 2017-10-28 18:58 | ER Document Report ---
ED Medical Screen (RME) - General Chief Complaint: Arm Pain Stated Complaint: ARM PAIN Time Seen by Provider: 10/28/17 18:56 Mode of Arrival: Ambulatory Information source: Patient Notes: Patient was bit by a pit bull approximately 8 days ago. Patient had the wound repaired here that day. Patient has been taking Augmentin at home. Patient presents with warmth erythema and swelling to the left forearm. Exam appears consistent with wound abscess and cellulitis. TRAVEL OUTSIDE OF THE [place] IN LAST 30 DAYS: No - Related Data Allergies/Adverse Reactions: meloxicam [From Mobic] Allergy (Verified 10/28/17 18:05) methadone [Methadone] Allergy (Verified 10/28/17 18:05) Hives pregabalin [From Lyrica] Allergy (Verified 10/28/17 18:05) morphine [Morphine] Adverse Reaction (Verified 10/28/17 18:05) itching Past Medical History - Social History Family history: Reviewed & Not Pertinent Pulmonary Medical History: Reports: Hx Asthma, Hx Bronchitis, Hx COPD, Hx Pneumonia Renal/ Medical History: Reports: Hx Kidney Stones. Denies: Hx Peritoneal Dialysis Malignancy Medical History: Reports: Hx Cervical Cancer GI Medical History: Reports: Hx Diverticulitis, Hx Gastritis, Hx Gastroesophageal Reflux Disease, Hx Hepatitis - c Musculoskeltal Medical History: Reports Hx Arthritis, Reports Hx Musculoskeletal Deformity, Reports Hx Musculoskeletal Trauma - Rotator cuff bilateral , partial toe amputation Psychiatric Medical History: Reports: Hx Attention Deficit Hyperactivity Disorder, Hx Bipolar Disorder, Hx Depression, Hx Obsessive Compulsive Disorder Infectious Medical History: Reports: Hx Hepatitis - c Past Surgical History: Reports: Hx Section - x1, Hx Cholecystectomy, Hx Hysterectomy, Hx Kidney (Renal Surgery) - stent, Hx Nose Surgery - Sinus repair, Hx Orthopedic Surgery - Right Rotator cuff repair. - Immunizations Immunizations up to date: No Hx Diphtheria, Pertussis, Tetanus Vaccination: Yes Physical Exam - Vital signs Vitals: Temp Pulse Resp BP Pulse Ox 97.7 F 55 L 18 106/54 L 97 10/28/17 18:15 10/28/17 18:15 10/28/17 18:15 10/28/17 18:15 10/28/17 18:15 Course - Vital Signs Vital signs: Temp Pulse Resp BP Pulse Ox 97.7 F 55 L 18 106/54 L 97 10/28/17 18:15 10/28/17 18:15 10/28/17 18:15 10/28/17 18:15 10/28/17 18:15
[2017-10-28 19:50] LABS: ABSOLUTE BASOPHILS # (AUTO) 0.1 10^3/uL (0.0-0.2); ABSOLUTE EOSINOPHILS # (AUTO) 0.5 10^3/uL (0.0-0.6); ABSOLUTE LYMPHOCYTES (AUTO) 3.4 10^3/uL (0.5-4.7); ABSOLUTE MONOCYTES (AUTO) 0.6 10^3/uL (0.1-1.4); ABSOLUTE NEUT (AUTO) 2.6 10^3/uL (1.7-8.2); EOSINOPHILS % (AUTO) 6.8 % (0-6); HEMATOCRIT 37.1 % (36.0-47.0); HEMOGLOBIN 12.9 g/dL (12.0-15.5); LYMPHOCYTES % (AUTO) 47.7 % (13-45); MEAN CORPUSCULAR HGB CONC 34.7 g/dL (32.0-36.0); MEAN CORPUSCULAR VOLUME 98 fl (80-97); MONOCYTES % (AUTO) 8.8 % (3-13); PLATELET COUNT 236 10^3/uL (150-450); RED BLOOD COUNT 3.78 10^6/uL (3.72-5.28); RED CELL DISTRIBUTION WIDTH 13.5 % (11.5-14.0); SEGMENTED NEUTROPHILS % (AUTO) 35.7 % (42-78); TOTAL CELLS COUNTED % (AUTO) 100 %; WHITE BLOOD COUNT 7.2 10^3/uL (4.0-10.5)
[2017-10-28 20:49] LABS: ALANINE AMINOTRANSFERASE 58 U/L (9-52); ALBUMIN 3.5 g/dL (3.5-5.0); ALKALINE PHOSPHATASE 112 U/L (38-126); ANION GAP 7 (5-19); ASPARTATE AMINO TRANSFERASE 46 U/L (14-36); BILIRUBIN,DIRECT 0.3 mg/dL (0.0-0.4); BILIRUBIN,TOTAL 0.7 mg/dL (0.2-1.3); BLOOD UREA NITROGEN 13 mg/dL (7-20); CALCIUM 10.2 mg/dL (8.4-10.2); CARBON DIOXIDE 24 mmol/L (22-30); CHLORIDE 108 mmol/L (98-107); GLUCOSE 97 mg/dL (75-110); POTASSIUM 3.8 mmol/L (3.6-5.0); SODIUM 138.5 mmol/L (137-145); TOTAL PROTEIN 6.5 g/dL (6.3-8.2)
[2017-10-28] MEDS ORDERED: LIDOCAINE 1% INJ-PF (10 MG/ML) 30 ML SDV INJ ONE (21:28)
--- NOTE | 2017-10-28 21:32 | ER Document Report ---
ED Extremity Problem, Upper - General Chief Complaint: Arm Pain Stated Complaint: ARM PAIN Time Seen by Provider: 10/28/17 18:56 Mode of Arrival: Ambulatory Notes: 57-year-old female to the emergency department complaining of swelling around a dog bite. Patient was seen here 1 week ago. Started on Augmentin. Laceration was repaired. Has been doing fine. Did notice some swelling that is not going away around the laceration site. A little bit of increased redness as well. Patient is unsure if the redness is getting worse or better. History of hepatitis C. TRAVEL OUTSIDE OF THE [place] IN LAST 30 DAYS: No - HPI Patient complains to provider of: Swelling, Left, Forearm - Related Data Allergies/Adverse Reactions: meloxicam [From Mobic] Allergy (Verified 10/28/17 18:05) methadone [Methadone] Allergy (Verified 10/28/17 18:05) Hives pregabalin [From Lyrica] Allergy (Verified 10/28/17 18:05) morphine [Morphine] Adverse Reaction (Verified 10/28/17 18:05) itching Past Medical History - General Information source: Patient - Social History Smoking Status: Current Every Day Smoker Cigarette use (# per day): Yes Frequency of alcohol use: None Drug Abuse: None Lives with: Spouse/Significant other Family History: Reviewed & Not Pertinent Patient has suicidal ideation: No Patient has homicidal ideation: No Pulmonary Medical History: Reports: Hx Asthma, Hx Bronchitis, Hx COPD, Hx Pneumonia Renal/ Medical History: Reports: Hx Kidney Stones. Denies: Hx Peritoneal Dialysis Malignancy Medical History: Reports: Hx Cervical Cancer GI Medical History: Reports: Hx Diverticulitis, Hx Gastritis, Hx Gastroesophageal Reflux Disease, Hx Hepatitis - c Musculoskeltal Medical History: Reports Hx Arthritis, Reports Hx Musculoskeletal Deformity, Reports Hx Musculoskeletal Trauma - Rotator cuff bilateral , partial toe amputation Psychiatric Medical History: Reports: Hx Attention Deficit Hyperactivity Disorder, Hx Bipolar Disorder, Hx Depression, Hx Obsessive Compulsive Disorder Infectious Medical History: Reports: Hx Hepatitis - c Past Surgical History: Reports: Hx Section - x1, Hx Cholecystectomy, Hx Hysterectomy, Hx Kidney (Renal Surgery) - stent, Hx Nose Surgery - Sinus repair, Hx Orthopedic Surgery - Right Rotator cuff repair. - Immunizations Immunizations up to date: No Hx Diphtheria, Pertussis, Tetanus Vaccination: Yes Review of Systems - Review of Systems Constitutional: No symptoms reported EENT: No symptoms reported Cardiovascular: No symptoms reported Respiratory: No symptoms reported Gastrointestinal: No symptoms reported Genitourinary: No symptoms reported Female Genitourinary: No symptoms reported Musculoskeletal: No symptoms reported Skin: Lesions, Other - Redness to the left upper extremity previous dog bite Hematologic/Lymphatic: No symptoms reported Neurological/Psychological: No symptoms reported Physical Exam - Vital signs Vitals: Temp Pulse Resp BP Pulse Ox 97.7 F 55 L 18 106/54 L 97 10/28/17 18:15 10/28/17 18:15 10/28/17 18:15 10/28/17 18:15 10/28/17 18:15 Interpretation: Normal - General General appearance: Appears well, Alert - HEENT Head: Normocephalic, Atraumatic Eyes: Normal Pupils: PERRL - Respiratory Respiratory status: No respiratory distress Chest status: Nontender Breath sounds: Normal Chest palpation: Normal - Cardiovascular Rhythm: Regular Heart sounds: Normal auscultation Murmur: No - Abdominal Inspection: Normal Distension: No distension Bowel sounds: Normal Tenderness: Nontender Organomegaly: No organomegaly - Back Back: Normal, Nontender - Extremities General upper extremity: Tender, Normal color, Normal ROM, Normal temperature, Other - There is a sutured laceration approximately 1 week post repair with significant amount of swelling noted around the laceration repair site but no significant erythema. There is some erythema noted on the palmar aspect of the forearm. There is a bruise noted on the forearm. General lower extremity: Normal inspection, Nontender, Normal color, Normal ROM , Normal temperature, Normal weight bearing. No: Umberto's sign - Neurological Neuro grossly intact: Yes Cognition: Normal Orientation: AAOx4 Ilya Coma Scale Eye Opening: Spontaneous Ilya Coma Scale Verbal: Oriented Ilya Coma Scale Motor: Obeys Commands [place] Coma Scale Total: 15 Speech: Normal Motor strength normal: LUE, RUE, LLE, RLE Sensory: Normal - Psychological Associated symptoms: Normal affect, Normal mood - Skin Skin Temperature: Warm Skin Moisture: Dry Skin Color: Normal, Other - Healing laceration to the left forearm. Mild amount of erythema and bruising noted around the left forearm. Course - Re-evaluation Re-evalutation: 10/28/17 21:31 White blood cell count is fairly unremarkable. Patient afebrile. There is some redness but a lot of this is ecchymosis from the bite. There is a large fluid collection under the laceration site which could represent an abscess. Ultrasound at bedside shows large fluid collection. At this time will numb up the skin and attempt to aspirate fluid and do a wound culture. If it appears to be an exudative material consistent with infection will have to do an incision and drainage with packing. Patient consents to procedure at this time. 10/28/17 21:32 Laboratory 10/28/17 10/28/17 10/28/17 19:35 19:35 20:00 WBC 7.2 RBC 3.78 Hgb 12.9 Hct 37.1 MCV 98 H MCH 34.0 H MCHC 34.7 RDW 13.5 Plt Count 236 Seg Neutrophils % 35.7 L Lymphocytes % 47.7 H Monocytes % 8.8 Eosinophils % 6.8 H Basophils % 1.0 Absolute Neutrophils 2.6 Absolute Lymphocytes 3.4 Absolute Monocytes 0.6 Absolute Eosinophils 0.5 Absolute Basophils 0.1 Sodium Cancelled 138.5 Potassium Cancelled 3.8 Chloride Cancelled 108 H Carbon Dioxide Cancelled 24 Anion Gap Cancelled 7 BUN Cancelled 13 Creatinine Cancelled 0.66 Est GFR ( Amer) Cancelled > 60 Est GFR (Non-Af Amer) Cancelled > 60 Glucose Cancelled 97 Calcium Cancelled 10.2 Total Bilirubin Cancelled 0.7 Direct Bilirubin Cancelled 0.3 Neonat Total Bilirubin Cancelled Not Reportable Neonat Direct Bilirubin Cancelled Not Reportable Neonat Indirect Bili Cancelled Not Reportable AST Cancelled 46 H ALT Cancelled 58 H Alkaline Phosphatase Cancelled 112 Total Protein Cancelled 6.5 Albumin Cancelled 3.5 10/28/17 22:36 Counts unremarkable. No evidence of abscess. There was a hematoma which was partially evacuated. One suture was placed after incision. Please see procedure note. Will continue on her regular medications. Advised to return if getting worse. Advised to keep compression dressing on as well. Follow-up in 1 week for suture removal unless redness is getting worse. 10/28/17 22:36 - Vital Signs Vital signs: Temp Pulse Resp BP Pulse Ox 97.7 F 55 L 18 106/54 L 97 10/28/17 18:15 10/28/17 18:15 10/28/17 18:15 10/28/17 18:15 10/28/17 18:15 - Laboratory Result Diagrams: 10/28/17 19:35 10/28/17 20:00 Laboratory results interpreted by me: 10/28/17 10/28/17 19:35 20:00 MCV 98 H MCH 34.0 H Seg Neutrophils % 35.7 L Lymphocytes % 47.7 H Eosinophils % 6.8 H Chloride 108 H AST 46 H ALT 58 H Procedures - Incision and Drainage Left Arm Time completed: 22:34 Type: Simple Anesthetic type: 1% Lidocaine mL's of anesthetic: 3 Blade size: 11 I&D procedure: Betadine prep applied, Shurclens applied Incision Method: Incision made by scalpel Amount/type of drainage: Blood clots Notes: 10/28/17 22:35 Consent was obtained for incision and drainage. There is a large fluctuant area that we could see on physical exam as well as with bedside ultrasound. The area was prepped with Betadine. Small incision was made. There were moderate amount of clots that were returned. No obvious purulent drainage. No evidence of infection. The area was irrigated with sterile saline. One suture was placed with 4-0 nylon. Patient tolerated procedure well with no complications. Discharge - Discharge Clinical Impression: Hematoma Condition: Good Disposition: HOME, SELF-CARE Instructions: Hematoma (OM), Laceration Care (OM) Additional Instructions: Continue to monitor redness. If the redness appears to be getting worse please return for repeat evaluation. Wear compression dressing is instructed. Have sutures removed in 7-10 days.
[2017-10-28 23:05] VITALS: BP 132/75
== END 2017-10-28 23:05 | disposition home or self-care (01) ==
LOC: ER 18:03
PROC: 0H9EXZZ Drainage of Left Lower Arm Skin, External Approach (ICD-10-PCS; principal; 2017-10-28)
DX: S50.12XA Contusion of left forearm, initial encounter (principal); M79.602 Pain in left arm; W54.0XXA Bitten by dog, initial encounter; F17.210 Nicotine dependence, cigarettes, uncomplicated; Z88.6 Allergy status to analgesic agent; Z87.442 Personal history of urinary calculi; Z90.49 Acquired absence of other specified parts of digestive tract; Z90.710 Acquired absence of both cervix and uterus
CPT/HCPCS: 99283; 96365; 36415; 85025; 80053; 10140; J2543

== ENCOUNTER 2018-07-05 17:22 | Emergency (ER) | payer MEDICARE, MEDICAID ==
[2018-07-05] MEDS ORDERED: PREDNISONE 20 MG TABLET PO ONE (19:14)
[2018-07-05] MEDS ORDERED: IPRATROPIUM/ALBUTEROL 0.5-2.5 MG/3 ML AMPUL NEB ONE (19:14)
--- NOTE | 2018-07-05 19:54 | ER Document Report ---
HPI - HPI Pain Level: 3 Notes: Patient is a 57-year-old female with past medical history of asthma and COPD who presents to the emergency department with complaint of shortness of breath and cough that has been going on for 2 days. Patient reports she is coughing up purulent sputum but nothing changed from her baseline sputum production. Patient denies any fevers. Patient reports she is currently smoking approximately 1 pack/day. Patient states she has been using her albuterol inhaler and her albuterol nebulizers at home however she feels that she may need some steroids at this point in time. - CONSTITUTIONAL Constitutional: DENIES: Fever, Chills - EENT EENT: DENIES: Sore Throat, Ear Pain, Eye problems - NEURO Neurology: DENIES: Headache, Weakness, Vision blurred, Dizzinesss / Vertigo - CARDIOVASCULAR Cardiovascular: DENIES: Chest pain - RESPIRATORY Respiratory: REPORTS: Coughing. DENIES: Trouble Breathing - GASTROINTESTINAL Gastrointestinal: DENIES: Abdominal Pain, Black / Bloody Stools - URINARY Urinary: DENIES: Dysuria, Urgency, Frequency - REPRODUCTIVE Reproductive: DENIES: : - MUSCULOSKELETAL Musculoskeletal: DENIES: Extremity pain Past Medical History - General Information source: Patient - Social History Smoking Status: Current Every Day Smoker Family History: Reviewed & Not Pertinent Patient has suicidal ideation: No Patient has homicidal ideation: No Pulmonary Medical History: Reports: Hx Asthma, Hx Bronchitis, Hx COPD, Hx Pneumonia Renal/ Medical History: Reports: Hx Kidney Stones. Denies: Hx Peritoneal Dialysis Malignancy Medical History: Reports: Hx Cervical Cancer GI Medical History: Reports: Hx Diverticulitis, Hx Gastritis, Hx Gastroesophageal Reflux Disease, Hx Hepatitis - c Musculoskeletal Medical History: Reports Hx Arthritis, Reports Hx Musculoskeletal Deformity, Reports Hx Musculoskeletal Trauma - Rotator cuff bilateral , partial toe amputation Psychiatric Medical History: Reports: Hx Attention Deficit Hyperactivity Disorder, Hx Bipolar Disorder, Hx Depression, Hx Obsessive Compulsive Disorder Infectious Medical History: Reports: Hx Hepatitis - c Past Surgical History: Reports: Hx Section - x1, Hx Cholecystectomy, Hx Hysterectomy, Hx Kidney (Renal Surgery) - stent, Hx Nose Surgery - Sinus repair, Hx Orthopedic Surgery - Right Rotator cuff repair. - Immunizations Immunizations up to date: No Hx Diphtheria, Pertussis, Tetanus Vaccination: Yes Vertical Provider Document - CONSTITUTIONAL Notes: PHYSICAL EXAMINATION: GENERAL: Well-appearing, well-nourished and in no acute distress. HEAD: Atraumatic, normocephalic. EYES: Pupils equal round extraocular movements intact, conjunctiva are normal. ENT: Nares patent NECK: Normal range of motion LUNGS: No respiratory distress, mild expiratory wheezing noted bilaterally, no respiratory distress noted. Musculoskeletal: Normal range of motion NEUROLOGICAL: Normal speech, normal gait. PSYCH: Normal mood, normal affect. SKIN: Warm, Dry, normal turgor, no rashes or lesions noted. - INFECTION CONTROL TRAVEL OUTSIDE OF THE [place] IN LAST 30 DAYS: No Course - Re-evaluation Re-evalutation: Patient was given 1 breathing treatment while in the department and a dose of prednisone 40 mg p.o. Patient will be placed on prednisone for the next 5 days. No indication for antibiotics as patient has only been sick for 2 days, has no fever and has no increase in the amount of her sputum production. Patient verbalizes understanding of this. Extensive conversation had with patient regarding smoking cessation. - Vital Signs Vital signs: Temp Pulse Resp BP Pulse Ox 97.6 F 49 L 16 128/48 H 100 07/05/18 17:49 07/05/18 17:49 07/05/18 17:49 07/05/18 17:49 07/05/18 17:49 Discharge - Discharge Clinical Impression: COPD exacerbation Condition: Stable Disposition: HOME, SELF-CARE Additional Instructions: Chronic Obstructive Lung Disease You have chronic obstructive lung disease (COPD). The symptoms come from emphysema (damage to small airways, with trapping of air in large sacks in the lung) and chronic bronchitis (repeated infection and damage to larger airways). The cause is almost always cigarette smoking, although dust exposure, asthma, and infections contribute. You should avoid fumes, dust, and smoke (especially tobacco smoke). Your condition will flare from time to time. There is no cure, but the symptoms can be treated. Bronchodilators (asthma medicine) are often helpful. Antibiotics help when infection is present. When shortness of breath is severe, we may prescribe cortisone medication. If medicine doesn't help enough, we can arrange for you to have an oxygen tank at home. Notify your doctor at once if sputum becomes thick, foul, or bloody, if you develop a fever or chest pain, or if your shortness of breath worsens. Take prednisone as prescribed. Please continue to decrease the amount that you are smoking until your smoking no cigarettes at all. This is likely triggering your COPD exacerbation. Call 1 800 quit NOW, follow the prompts and they will help you and send you free patches. Continue to use your breathing treatments that you have at home as prescribed by your physician. Prescriptions: Prednisone [Deltasone 20 mg Tablet] 2 tab PO DAILY 5 Days #40 tablet Referrals: LOLY LUNA MD [Primary Care Provider] - Follow up as needed
[2018-07-05 20:06] VITALS: BP 113/56
== END 2018-07-05 20:06 | disposition home or self-care (01) ==
LOC: ER 17:22
DX: J44.1 Chronic obstructive pulmonary disease with (acute) exacerbation (principal); F17.210 Nicotine dependence, cigarettes, uncomplicated; Z87.442 Personal history of urinary calculi; Z85.41 Personal history of malignant neoplasm of cervix uteri; Z90.49 Acquired absence of other specified parts of digestive tract; Z90.710 Acquired absence of both cervix and uterus
CPT/HCPCS: 94640; 99283; A9270 ×2; J7512; J7620

== ENCOUNTER 2019-01-24 05:32 | Emergency (ER) | payer MEDICARE, MEDICAID ==
--- NOTE | 2019-01-24 07:33 | RADIOLOGY REPORT (SQ) ---
EXAM: X-ray wrist three or more views CLINICAL DATA: 58-year-old female status post fall with pain TECHNICAL DATA: Three x-ray views of the left wrist were performed on 01/24/2019 at 7:11 AM. COMPARISONS: Prior left wrist performed on 01/14/2017 FINDINGS: There is no evidence of acute fracture or dislocation. There are arthritic changes involving the first carpal metacarpal joint. There is hypertrophic spurring involving the base of the first metacarpal and possibly base of the second metacarpal and trapezium. An acute fracture in this location is considered less likely. No additional significant degenerative changes are identified. There are no lytic or sclerotic bone lesions. Bone mineralization is normal. There appears to be mild soft tissue swelling along the volar aspect of the distal left forearm. IMPRESSION: 1. Irregularity involving the first carpal metacarpal joint with hypertrophic changes in this region likely due to progressive osteoarthritis when compared to the prior study. A fracture in this location is not entirely excluded. Correlate clinically for focal pain in this region. 2. Mild soft tissue swelling along the volar aspect of the distal left forearm.
--- NOTE | 2019-01-24 08:51 | ER Document Report ---
ED Hand/Wrist Injury - General Chief Complaint: Wrist Injury Stated Complaint: LEFT WRIST INJURY Time Seen by Provider: 01/24/19 08:27 Primary Care Provider: ZULLY JOVEL PA [Primary Care Provider] - Follow up as needed TRAVEL OUTSIDE OF THE [place] IN LAST 30 DAYS: No - HPI Notes: Patient is a 58-year-old female who presents to the emergency department with a left hand injury. Patient states that yesterday around 3 PM she was getting out of her recliner when she tripped over her dog. Patient states when she tripped she fell forward landing on her outstretched left hand. Patient does report having what she thinks is rheumatoid arthritis and degenerative changes in both hands. Patient states she is continued to have pain over the left wrist with a mild amount of swelling. Denies bruising. Patient denies any other injury. Patient does report some numbness to all 5 of her fingers on the left hand. - Related Data Allergies/Adverse Reactions: meloxicam [From Mobic] Allergy (Verified 10/28/17 18:05) methadone [Methadone] Allergy (Verified 10/28/17 18:05) Hives pregabalin [From Lyrica] Allergy (Verified 10/28/17 18:05) morphine [Morphine] Adverse Reaction (Verified 10/28/17 18:05) itching Past Medical History - General Information source: Patient - Social History Smoking Status: Current Every Day Smoker Cigarette use (# per day): Yes Frequency of alcohol use: None Drug Abuse: None Lives with: Alone Family History: Reviewed & Not Pertinent Patient has suicidal ideation: No Patient has homicidal ideation: No - Past Medical History Cardiac Medical History: Reports: None Pulmonary Medical History: Reports: Hx Asthma, Hx Bronchitis, Hx COPD, Hx Pneumonia EENT Medical History: Reports: None Neurological Medical History: Reports: None Endocrine Medical History: Reports: None Renal/ Medical History: Reports: Hx Kidney Stones. Denies: Hx Peritoneal D ialysis Malignancy Medical History: Reports: Hx Cervical Cancer GI Medical History: Reports: Hx Diverticulitis, Hx Gastritis, Hx Gastroesophageal Reflux Disease, Hx Hepatitis - c Musculoskeletal Medical History: Reports Hx Arthritis, Reports Hx Musculoskeletal Deformity, Reports Hx Musculoskeletal Trauma - Rotator cuff bila teral , partial toe amputation Psychiatric Medical History: Reports: Hx Attention Deficit Hyperactivity Disorder, Hx Bipolar Disorder, Hx Depression, Hx Obsessive Compulsive Disorder Traumatic Medical History: Reports: None Infectious Medical History: Reports: Hx Hepatitis - c Past Surgical History: Reports: Hx Section - x1, Hx Cholecystectomy, Hx Hysterectomy, Hx Kidney (Renal Surgery) - stent, Hx Nose Surgery - Sinus repair, Hx Orthopedic Surgery - Right Rotator cuff repair. - Immunizations Immunizations up to date: No Hx Diphtheria, Pertussis, Tetanus Vaccination: Yes Review of Systems - Review of Systems Constitutional: No symptoms reported EENT: No symptoms reported Cardiovascular: No symptoms reported Respiratory: No symptoms reported Gastrointestinal: No symptoms reported Genitourinary: No symptoms reported Female Genitourinary: No symptoms reported Musculoskeletal: No symptoms reported Skin: No symptoms reported Hematologic/Lymphatic: No symptoms reported Neurological/Psychological: No symptoms reported Physical Exam - Vital signs Vitals: Temp Pulse Resp BP Pulse Ox 97.6 F 86 18 132/79 H 96 01/24/19 05:34 01/24/19 05:34 01/24/19 05:34 01/24/19 05:34 01/24/19 05:34 Interpretation: Normal - Notes Notes: GENERAL: Well-appearing, well-nourished and in no acute distress. HEAD: Atraumatic, normocephalic. EYES: Pupils equal round and reactive to light, extraocular movements intact, sclera anicteric, conjunctiva are normal. Pt. wears glasses. ENT: Moist mucous membranes. NECK: Normal range of motion, supple without lymphadenopathy or JVD. LUNGS: Breath sounds clear to auscultation bilaterally and equal. No wheezes rales or rhonchi. HEART: Regular rate and rhythm without murmurs, rubs or gallops. ABDOMEN: Soft, nontender, normoactive bowel sounds. No guarding, no rebound. No masses appreciated. BACK: No cervical, thoracic, lumbar midline tenderness. No saddle anesthesia, normal distal neurovascular exam. GENITOURINARY: Deferred. EXTREMITIES: Patient has normal ROM to left wrist, + flexion and extension to all fingers, + opposition, questionable snuff box tenderness as at times of palpation she reports pain and sometimes denies, + strong left radial pulse, no bruising, small amount of swelling to the volar aspect of the left wrist. NEUROLOGICAL: Cranial nerves II through XII grossly intact. Normal speech, normal gait. PSYCH: Normal mood, normal affect. SKIN: Warm, Dry, normal turgor, no rashes or lesions noted. Course - Re-evaluation Re-evalutation: 01/24/19 Due to questionable XRAY with the possibility that a fracture cannot be excluded, positive snuff box tenderness and mechanism of injury I will place patient in a splint and have her follow up with ortho. Patient states she has an orthopedic doctor and will call them later today for a follow up appointment. - Vital Signs Vital signs: Temp Pulse Resp BP Pulse Ox 97.6 F 70 16 130/83 H 96 01/24/19 09:38 01/24/19 09:38 01/24/19 06:46 01/24/19 09:38 01/24/19 09:38 - Diagnostic Test Radiology reviewed: Reports reviewed Radiology results interpreted by me: 01/24/19 Left wrist XRAY shoes irregularity involving the first carpal metacarpal joint with progressive osteoarthritis. A fracture cannot be entirely excluded per the read. Discharge - Discharge Clinical Impression: Left wrist sprain Qualifiers: Encounter type: initial encounter Qualified Code(s): S63.502A - Unspecified sprain of left wrist, initial encounter Condition: Stable Disposition: HOME, SELF-CARE Additional Instructions: Today you were seen in the emergency department for a left wrist injury. Your x-ray did show degenerative changes consistent with arthritis. Although the x- ray did not show any acute fracture, due to the mechanism and pain to the left wrist nerve and tendon damage cannot be excluded. You may need an MRI for this. Today we have placed you in a splint, this is for comfort. You have stated that you do have an orthopedic doctor, please call them today to make a follow- up appointment. Please keep the splint clean and dry. Return to the emergency department if your fingers turned blue or become gonzales and dusky, any new or worsening numbness or tingling to your finger. Splint Precautions A splint has been placed. This will protect the area while healing begins. Your problem does NOT normally require a cast. It MUST, however, be held still! Keep the splint on ALL THE TIME until instructed to remove it by the doctor. As you begin to use the area, be careful. You shouldn't do anything which causes discomfort -- you may disturb the injury even with the splint in place. After the initial period of rest and elevation, if splint does not prevent pain when you move, come back. You may require placement of a different splint, or a cast. If there is unexpected severe pain, or numbness, discoloration, or swelling beyond the splint, you should return at once. If you feel that the splint has broken or become loose, come back. Sprain Your injury is a sprain. A sprain results from stretching or tearing of the ligaments, usually from a twisting injury. The ligaments will require time and protection in order to heal properly. Many sprains are quite disabling and should be taken seriously. The usual initial treatment of sprains is cold packs, elevation, and rest of the injured area. Your physician has assessed the seriousness of your ligament injury, and has outlined a treatment plan. Understand that this treatment may change, depending on how you progress. If a re-examination was recommended, it is important that you follow up as instructed. Call the doctor any time if there is severe pain, numbness, or loss of function in the injured area. Referrals: ZULLY JOVEL PA [Primary Care Provider] - Follow up as needed
[2019-01-24] MEDS ORDERED: IBUPROFEN 600 MG TABLET PO ONE (09:30)
[2019-01-24 09:45] VITALS: BP 130/83
== END 2019-01-24 09:49 | disposition home or self-care (01) ==
LOC: ER 05:32
DX: S63.502A Unspecified sprain of left wrist, initial encounter (principal); W01.0XXA Fall on same level from slipping, tripping and stumbling without subsequent striking against object, initial encounter; Y93.89 Activity, other specified; M25.532 Pain in left wrist; R20.0 Anesthesia of skin; F17.210 Nicotine dependence, cigarettes, uncomplicated; J44.9 Chronic obstructive pulmonary disease, unspecified; Z88.6 Allergy status to analgesic agent; Z88.5 Allergy status to narcotic agent; Z88.8 Allergy status to other drugs, medicaments and biological substances; Z85.41 Personal history of malignant neoplasm of cervix uteri
CPT/HCPCS: 99283

== ENCOUNTER 2019-02-20 20:24 | Emergency (ER) | payer MEDICARE, MEDICAID ==
--- NOTE | 2019-02-20 20:37 | ER Document Report ---
ED Medical Screen (RME) - General Chief Complaint: Leg Swelling Stated Complaint: LEG PAIN Time Seen by Provider: 02/20/19 20:31 Primary Care Provider: ZULLY JOVEL PA [Primary Care Provider] - Follow up as needed Mode of Arrival: Ambulatory Information source: Patient Notes: Patient presents to the emergency room department with complaints of bilateral l ower leg swelling. Reports started yesterday. She reports she went to sleep and the swelling went down but when she started walking around today swelling returned. Denies history of cardiac disease. Denies nausea vomiting fever diarrhea. Reports her hep C is all cleared up. Bilateral pitting edema +1 noted to lower legs but none to her feet. I have greeted and performed a rapid initial assessment of this patient. A comprehensive ED assessment and evaluation of the patient, analysis of test results and completion of the medical decision making process will be conducted by additional ED providers. Dictation of this chart was performed using voice recognition software; therefore, there may be some unintended grammatical errors. TRAVEL OUTSIDE OF THE [place] IN LAST 30 DAYS: No - Related Data Allergies/Adverse Reactions: meloxicam [From Mobic] Allergy (Verified 10/28/17 18:05) methadone [Methadone] Allergy (Verified 10/28/17 18:05) Hives pregabalin [From Lyrica] Allergy (Verified 10/28/17 18:05) morphine [Morphine] Adverse Reaction (Verified 10/28/17 18:05) itching Past Medical History - Social History Family history: Reviewed & Not Pertinent Pulmonary Medical History: Reports: Hx Asthma, Hx Bronchitis, Hx COPD, Hx Pneumonia Renal/ Medical History: Reports: Hx Kidney Stones. Denies: Hx Peritoneal Dialysis Malignancy Medical History: Reports: Hx Cervical Cancer GI Medical History: Reports: Hx Diverticulitis, Hx Gastritis, Hx Gastroesophageal Reflux Disease, Hx Hepatitis - c Musculoskeltal Medical History: Reports Hx Arthritis, Reports Hx Musculoskeletal Deformity, Reports Hx Musculoskeletal Trauma - Rotator cuff bilateral , partial toe amputation Psychiatric Medical History: Reports: Hx Attention Deficit Hyperactivity Disorder, Hx Bipolar Disorder, Hx Depression, Hx Obsessive Compulsive Disorder Infectious Medical History: Reports: Hx Hepatitis - c Past Surgical History: Reports: Hx Section - x1, Hx Cholecystectomy, Hx Hysterectomy, Hx Kidney (Renal Surgery) - stent, Hx Nose Surgery - Sinus repair, Hx Orthopedic Surgery - Right Rotator cuff repair. - Immunizations Immunizations up to date: No Hx Diphtheria, Pertussis, Tetanus Vaccination: Yes Doctor's Discharge - Discharge Referrals: ZULLY JOVEL PA [Primary Care Provider] - Follow up as needed
[2019-02-20 21:02] LABS: ABSOLUTE BASOPHILS # (AUTO) 0.1 10^3/uL (0.0-0.2); ABSOLUTE EOSINOPHILS # (AUTO) 0.5 10^3/uL (0.0-0.6); ABSOLUTE LYMPHOCYTES (AUTO) 2.2 10^3/uL (0.5-4.7); ABSOLUTE MONOCYTES (AUTO) 0.7 10^3/uL (0.1-1.4); ABSOLUTE NEUT (AUTO) 3.3 10^3/uL (1.7-8.2); HEMOGLOBIN 9.7 g/dL (12.0-15.5); LYMPHOCYTES % (AUTO) 32.4 % (13-45); MEAN CORPUSCULAR HEMOGLOBIN 30.2 pg (27.0-33.4); MEAN CORPUSCULAR HGB CONC 33.6 g/dL (32.0-36.0); MEAN CORPUSCULAR VOLUME 90 fl (80-97); PLATELET COUNT 237 10^3/uL (150-450); RED BLOOD COUNT 3.22 10^6/uL (3.72-5.28); RED CELL DISTRIBUTION WIDTH 15.1 % (11.5-14.0); SEGMENTED NEUTROPHILS % (AUTO) 48.6 % (42-78); TOTAL CELLS COUNTED % (AUTO) 100 %; WHITE BLOOD COUNT 6.8 10^3/uL (4.0-10.5)
[2019-02-20 21:05] LABS: APPEARANCE,URINE CLEAR; BILIRUBIN,URINE NEGATIVE (NEGATIVE); COLOR,URINE STRAW; GLUCOSE, URINE NEGATIVE (NEGATIVE); KETONES,URINE NEGATIVE (NEGATIVE); LEUKOCYTE ESTERASE,URINE NEGATIVE (NEGATIVE); NITRITE,URINE NEGATIVE (NEGATIVE); PROTEIN,URINE NEGATIVE (NEGATIVE); URINE SPECIFIC GRAVITY 1.006; UROBILINOGEN,URINE NEGATIVE mg/dL (<2.0)
[2019-02-20 21:18] LABS: ALANINE AMINOTRANSFERASE 74 U/L (9-52); ALBUMIN 3.3 g/dL (3.5-5.0); ALKALINE PHOSPHATASE 106 U/L (38-126); ASPARTATE AMINO TRANSFERASE 100 U/L (14-36); BILIRUBIN,DIRECT 0.3 mg/dL (0.0-0.4); BILIRUBIN,TOTAL 0.5 mg/dL (0.2-1.3); BLOOD UREA NITROGEN 22 mg/dL (7-20); CALCIUM 9.9 mg/dL (8.4-10.2); CARBON DIOXIDE 25 mmol/L (22-30); CHLORIDE 108 mmol/L (98-107); POTASSIUM 3.9 mmol/L (3.6-5.0); SODIUM 137.4 mmol/L (137-145)
[2019-02-20 21:20] LABS: GLUCOSE 68 mg/dL (75-110)
[2019-02-20 21:22] LABS: ANION GAP 5 (5-19)
[2019-02-20] MEDS ORDERED: FUROSEMIDE INJ/PF 20 MG/2 ML SDV IV ONE (22:16)
--- NOTE | 2019-02-20 22:17 | ER Document Report ---
ED General - General Chief Complaint: Leg Swelling Stated Complaint: LEG PAIN Time Seen by Provider: 02/20/19 20:31 Primary Care Provider: ZULLY JOVEL PA [Primary Care Provider] - Follow up in 3-5 days Mode of Arrival: Ambulatory Notes: Patient is a 58-year-old female with history of hep C status post Harvoni treatment that presents to the emergency department for chief complaint of leg swelling. Patient states she is been noticing the swelling over the past few days, seems to be better in the morning, and worsens throughout the day, and has been causing some discomfort in her feet as well. She does not notice swelling like this in the past, she states she did have hep C which was treated, and otherwise denies any chronic medical conditions. She admits that she does not go to her primary care physician on a regular basis however. She denies any shortness of breath, chest pain, nausea, vomiting, diaphoresis, or other symptoms related to her leg swelling, it is both sides, and she has not noticed any redness or significant pain in her calf or thighs. Past Medical History: Hep C status post Harvoni treatment Past Surgical History: Social History: Admits to smoking cigarettes, and a few beers in the evening, denies illicit drug use. Family History: Reviewed and noncontributory for presenting illness Allergies: Reviewed, see documented allergy list. REVIEW OF SYSTEMS: Other than noted above, the 12 point review of systems was reviewed with the p atient and were negative, all pertinent findings are included in the HPI. PHYSICAL EXAMINATION: Vital signs reviewed, nursing noted reviewed. GENERAL: Appears older than stated age, but in no acute distress patient HEAD: Atraumatic, normocephalic. EYES: Eyes appear normal, extraocular movements intact, sclera anicteric, conjunctiva are normal. ENT: nares patent, oropharynx clear without exudates. Moist mucous membranes. NECK: Normal range of motion, supple without lymphadenopathy LUNGS: Breath sounds clear to auscultation bilaterally and equal. No wheezes rales or rhonchi. HEART: Regular rate and rhythm without murmurs ABDOMEN: Soft, nontender, normoactive bowel sounds. No rebound, guarding, or rigidity. No masses appreciated. EXTREMITIES: Nontender, good range of motion, trace bilateral pedal edema noted. NEUROLOGICAL: No focal neurological deficits. Moves all extremities spontaneously Motor and sensory grossly intact on exam. PSYCH: Normal mood, normal affect. SKIN: Warm, Dry, normal turgor, no rashes or lesions noted on exposed skin TRAVEL OUTSIDE OF THE [place] IN LAST 30 DAYS: No - Related Data Allergies/Adverse Reactions: meloxicam [From Mobic] Allergy (Verified 02/20/19 20:35) methadone [Methadone] Allergy (Verified 02/20/19 20:35) Hives pregabalin [From Lyrica] Allergy (Verified 02/20/19 20:35) morphine [Morphine] Adverse Reaction (Verified 02/20/19 20:35) itching Past Medical History - General Information source: Patient - Social History Smoking Status: Current Every Day Smoker Frequency of alcohol use: daily Drug Abuse: None Family History: Reviewed & Not Pertinent Patient has suicidal ideation: No Patient has homicidal ideation: No Pulmonary Medical History: Reports: Hx Asthma, Hx Bronchitis, Hx COPD, Hx Pneumonia Renal/ Medical History: Reports: Hx Kidney Stones. Denies: Hx Peritoneal Dialysis Malignancy Medical History: Reports: Hx Cervical Cancer GI Medical History: Reports: Hx Diverticulitis, Hx Gastritis, Hx Gastroesophageal Reflux Disease, Hx Hepatitis - c Musculoskeletal Medical History: Reports Hx Arthritis, Reports Hx Musculoskeletal Deformity, Reports Hx Musculoskeletal Trauma - Rotator cuff bilateral , partial toe amputation Psychiatric Medical History: Reports: Hx Attention Deficit Hyperactivity Disorder, Hx Bipolar Disorder, Hx Depression, Hx Obsessive Compulsive Disorder Infectious Medical History: Reports: Hx Hepatitis - c Past Surgical History: Reports: Hx Section - x1, Hx Cholecystectomy, Hx Hysterectomy, Hx Kidney (Renal Surgery) - stent, Hx Nose Surgery - Sinus repair, Hx Orthopedic Surgery - Right Rotator cuff repair. - Immunizations Immunizations up to date: No Hx Diphtheria, Pertussis, Tetanus Vaccination: Yes Physical Exam - Vital signs Vitals: Temp Pulse Resp BP Pulse Ox 98.5 F 71 16 152/71 H 99 02/20/19 20:30 02/20/19 20:30 02/20/19 20:30 02/20/19 20:30 02/20/19 20:30 Course - Re-evaluation Re-evalutation: Patient seen and examined vital signs reviewed. Laboratory data and/or imaging were ordered as appropriate for the patient's presenting symptoms and complaint, with consideration of any critical or life threatening conditions that may be associated with their obtained history and exam as noted above. Patient was treated with low-dose IV Lasix, 10 mg Results were reviewed when available and demonstrated increase in her BUN/creatinine from baseline, however that was over a year ago, I do not feel that this is acute renal failure, the patient did not have any protein in her urine, it may be post renal, as the patient does have a bladder sling, does not completely void, and I do not think it is the cause of the patient's peripheral edema, is most likely the patient's diet, she states she does have a rather high salt diet, and in the setting of recent high humidity, it is also playing a factor. Patient was hypertensive in the emergency department, which might be the cause of the patient's worsening kidney function, which seems to be followed up by her primary care, which I discussed with her at length, will place her on a low-dose Lasix regimen for 8 days, 10 mg daily, I did advised her to continue drinking fluids as usual. The patient was re-evaluated and was stable Evaluation was most consistent with peripheral edema Results were discussed with the patient at this point, after careful consideration I feel that that patient can be discharged from the emergency department, the patient was educated treatments and reasons to return to the emergency department based on their presumed diagnosis as noted above, they were advised to followup with a primary care physician in 2-3 days. Patient was agreeable to plan of care. *Note is created using voice recognition software and may contain spelling, syntax or grammatical errors. Laboratory 02/20/19 02/20/19 02/20/19 20:40 20:40 20:40 WBC 6.8 RBC 3.22 L Hgb 9.7 L Hct 29.0 L MCV 90 MCH 30.2 MCHC 33.6 RDW 15.1 H Plt Count 237 Seg Neutrophils % 48.6 Lymphocytes % 32.4 Monocytes % 10.0 Eosinophils % 8.0 H Basophils % 1.0 Absolute Neutrophils 3.3 Absolute Lymphocytes 2.2 Absolute Monocytes 0.7 Absolute Eosinophils 0.5 Absolute Basophils 0.1 Sodium 137.4 Potassium 3.9 Chloride 108 H Carbon Dioxide 25 Anion Gap 5 BUN 22 H Creatinine 1.86 H Est GFR ( Amer) 34 L Est GFR (Non-Af Amer) 28 L Glucose 68 L Calcium 9.9 Total Bilirubin 0.5 Direct Bilirubin 0.3 Neonat Total Bilirubin Not Reportable Neonat Direct Bilirubin Not Reportable Neonat Indirect Bili Not Reportable AST 100 H ALT 74 H Alkaline Phosphatase 106 Total Protein 6.0 L Albumin 3.3 L Urine Color STRAW Urine Appearance CLEAR Urine pH 5.0 Ur Specific [place] 1.006 Urine Protein NEGATIVE Urine Glucose (UA) NEGATIVE Urine Ketones NEGATIVE Urine Blood NEGATIVE Urine Nitrite NEGATIVE Urine Bilirubin NEGATIVE Urine Urobilinogen NEGATIVE Ur Leukocyte Esterase NEGATIVE Urine WBC (Auto) 7 Urine RBC (Auto) 1 Squamous Epi Cells Auto <1 Urine Mucus (Auto) RARE Urine Ascorbic Acid NEGATIVE Chest X-Ray 02/20/19 22:16 IMPRESSION: 1. No acute pulmonary findings. - Vital Signs Vital signs: Temp Pulse Resp BP Pulse Ox 97.6 F 84 16 154/74 H 99 02/20/19 23:45 02/20/19 23:45 02/20/19 23:45 02/20/19 23:45 02/20/19 20:30 - Laboratory Result Diagrams: 02/20/19 20:40 02/20/19 20:40 Laboratory results interpreted by me: 02/20/19 02/20/19 20:40 20:40 RBC 3.22 L Hgb 9.7 L Hct 29.0 L RDW 15.1 H Eosinophils % 8.0 H Chloride 108 H BUN 22 H Creatinine 1.86 H Est GFR ( Amer) 34 L Est GFR (Non-Af Amer) 28 L Glucose 68 L AST 100 H ALT 74 H Total Protein 6.0 L Albumin 3.3 L Discharge - Discharge Clinical Impression: Peripheral edema Condition: Stable Disposition: HOME, SELF-CARE Instructions: Edema, Peripheral ([facility]) Additional Instructions: Please follow-up with your primary care physician, call for an appointment tomorrow to schedule follow-up appointment in 1 to 2 weeks to repeat blood work. Advised decreasing salt in your diet, keeping legs elevated as much as p ossible during the day and in the evening. Take the prescribed medication, 1/2 tablet, daily for 7 to 8 days, and discontinue afterwards. Prescriptions: Furosemide [Lasix] 10 mg PO DAILY #4 tablet Referrals: ZULLY JOVEL PA [Primary Care Provider] - Follow up in 3-5 days
--- NOTE | 2019-02-20 22:51 | RADIOLOGY REPORT (SQ) ---
EXAM DESCRIPTION: [facility]: XR CHEST 1 VIEW CLINICAL HISTORY: 58 years Female, peripheral edema COMPARISON: 03/15/2015 FINDINGS: Lungs are clear, with no focal infiltrate, pneumothorax, or pleural effusion. No interstitial edema. Mediastinum is within normal limits for this positioning. Surgical anchors are again noted in both humeral heads. IMPRESSION: 1. No acute pulmonary findings.
[2019-02-20 23:47] VITALS: BP 154/74
== END 2019-02-20 23:45 | disposition home or self-care (01) ==
LOC: ER 20:24
DX: R60.0 Localized edema (principal); I10 Essential (primary) hypertension; F17.210 Nicotine dependence, cigarettes, uncomplicated; J44.9 Chronic obstructive pulmonary disease, unspecified; Z86.19 Personal history of other infectious and parasitic diseases; Z85.41 Personal history of malignant neoplasm of cervix uteri; Z88.8 Allergy status to other drugs, medicaments and biological substances; Z88.5 Allergy status to narcotic agent; Z88.6 Allergy status to analgesic agent
CPT/HCPCS: 99284; 96374; 36415; 85025; 80053; 81001; 71045; J1940

== ENCOUNTER 2019-06-13 22:56 | Emergency (ER) | payer MEDICARE, MEDICAID ==
[2019-06-14] MEDS ORDERED: METHOCARBAMOL 750 MG TABLET PO ONE (01:13)
[2019-06-14] MEDS ORDERED: PREDNISONE 20 MG TABLET PO ONE (01:13)
--- NOTE | 2019-06-14 01:23 | ER Document Report ---
ED General - General Chief Complaint: Pain All Over Stated Complaint: BODYACHES Time Seen by Provider: 06/14/19 00:56 Primary Care Provider: ZULLY JOVEL PA [Primary Care Provider] - Follow up as needed Mode of Arrival: Ambulatory Information source: Patient TRAVEL OUTSIDE OF THE [place] IN LAST 30 DAYS: No - HPI Notes: Patient is a 58 y.o. patient with hx of chronic arthritis pain through all joints and neck and back presents with report of worsening of chronic arthritis pains. 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 The patient denies any recent injury or fever or chills. No chest pain or difficulty breathing or nausea or vomiting. No abdominal pain or numbness or paresthesia. - Related Data Allergies/Adverse Reactions: meloxicam [From Mobic] Allergy (Verified 06/14/19 00:37) methadone [Methadone] Allergy (Verified 06/14/19 00:37) Hives pregabalin [From Lyrica] Allergy (Verified 06/14/19 00:37) morphine [Morphine] Adverse Reaction (Verified 06/14/19 00:37) itching Past Medical History - General Information source: Patient - Social History Smoking Status: Current Every Day Smoker Chew tobacco use (# tins/day): No Frequency of alcohol use: None Drug Abuse: None Lives with: Friend Family History: Reviewed & Not Pertinent Patient has suicidal ideation: No Patient has homicidal ideation: No Pulmonary Medical History: Reports: Hx Asthma, Hx Bronchitis, Hx COPD, Hx Pneumonia Renal/ Medical History: Reports: Hx Kidney Stones. Denies: Hx Peritoneal Dialysis Malignancy Medical History: Reports: Hx Cervical Cancer GI Medical History: Reports: Hx Diverticulitis, Hx Gastritis, Hx Gastroesophageal Reflux Disease, Hx Hepatitis - c Musculoskeletal Medical History: Reports Hx Arthritis, Reports Hx Musculoskeletal Deformity, Reports Hx Musculoskeletal Trauma - Rotator cuff bilateral , partial toe amputation Psychiatric Medical History: Reports: Hx Attention Deficit Hyperactivity Disorder, Hx Bipolar Disorder, Hx Depression, Hx Obsessive Compulsive Disorder Infectious Medical History: Reports: Hx Hepatitis - c Past Surgical History: Reports: Hx Section - x1, Hx Cholecystectomy, Hx Hysterectomy, Hx Kidney (Renal Surgery) - stent, Hx Nose Surgery - Sinus repair, Hx Orthopedic Surgery - Right Rotator cuff repair. - Immunizations Immunizations up to date: No Hx Diphtheria, Pertussis, Tetanus Vaccination: Yes Review of Systems - Review of Systems -: Yes All other systems reviewed and negative Physical Exam - Vital signs Vitals: Temp Pulse Resp BP Pulse Ox 97.7 F 68 22 H 98/78 L 98 06/13/19 23:28 06/13/19 23:28 06/13/19 23:28 06/13/19 23:28 06/13/19 23:28 - Notes Notes: PHYSICAL EXAMINATION: GENERAL: Well-appearing, well-nourished and in no acute distress. HEAD: Atraumatic, normocephalic. EYES: Pupils equal round and reactive to light, extraocular movements intact, conjunctiva are normal. ENT: Nares patent, oropharynx clear without exudates. Moist mucous membranes. NECK: Limited range of motion secondary to patient's chronic pain, supple without lymphadenopathy LUNGS: Breath sounds clear to auscultation bilaterally and equal. No wheezes rales or rhonchi. HEART: Regular rate and rhythm without murmurs ABDOMEN: Soft, nontender, nondistended abdomen. No guarding, no rebound. No masses appreciated. Female : deferred Musculoskeletal: Normal range of motion, no pitting or edema. No cyanosis. Patient has diffuse arthralgias noted shoulders and knees and hips and ankles. No erythema or crepitance or bony deformity. No proximal erythema. NEUROLOGICAL: Cranial nerves grossly intact. Normal speech, normal gait. Normal sensory, motor exams PSYCH: Normal mood, normal affect. SKIN: Warm, Dry, normal turgor, no rashes or lesions noted. Course - Re-evaluation Re-evalutation: 06/14/19 02:51 Patient was given prednisone and Robaxin for pain. No evidence for significant electrolyte imbalance or infectious etiology or clinical suggestion for fracture. - Vital Signs Vital signs: Temp Pulse Resp BP Pulse Ox 97.8 F 77 16 126/95 H 97 06/14/19 02:54 06/14/19 02:54 06/14/19 02:54 06/14/19 02:54 06/14/19 02:54 - Laboratory Result Diagrams: 06/14/19 01:18 06/14/19 01:18 Laboratory results interpreted by me: 06/14/19 06/14/19 01:18 01:18 Hgb 9.1 L Hct 30.2 L MCV 66 L MCH 20.0 L MCHC 30.2 L RDW 23.4 H Potassium 3.5 L Chloride 108 H Calcium 10.8 H AST 78 H Albumin 3.4 L Discharge - Discharge Clinical Impression: Osteoarthritis Qualifiers: Osteoarthritis location: unspecified site Osteoarthritis type: primary Qualified Code(s): M19.91 - Primary osteoarthritis, unspecified site Condition: Stable Disposition: HOME, SELF-CARE Instructions: Osteoarthritis ([facility]) Prescriptions: Methocarbamol [Robaxin 750 mg Tablet] 750 mg PO Q8HP PRN #25 tablet PRN Reason: Prednisone [Deltasone 10 mg Tablet] 10 mg PO ASDIR PRN #21 tablet PRN Reason: Referrals: ZULLY JOVEL PA [Primary Care Provider] - Follow up as needed
[2019-06-14 01:36] LABS: ABSOLUTE BASOPHILS # (AUTO) 0.1 10^3/uL (0.0-0.2); ABSOLUTE EOSINOPHILS # (AUTO) 0.2 10^3/uL (0.0-0.6); ABSOLUTE LYMPHOCYTES (AUTO) 2.2 10^3/uL (0.5-4.7); ABSOLUTE MONOCYTES (AUTO) 0.6 10^3/uL (0.1-1.4); ABSOLUTE NEUT (AUTO) 3.1 10^3/uL (1.7-8.2); BASOPHILS % (AUTO) 1.4 % (0-2); EOSINOPHILS % (AUTO) 3.9 % (0-6); HEMATOCRIT 30.2 % (36.0-47.0); HEMOGLOBIN 9.1 g/dL (12.0-15.5); LYMPHOCYTES % (AUTO) 35.5 % (13-45); MEAN CORPUSCULAR HGB CONC 30.2 g/dL (32.0-36.0); MEAN CORPUSCULAR VOLUME 66 fl (80-97); PLATELET COUNT 226 10^3/uL (150-450); RED BLOOD COUNT 4.56 10^6/uL (3.72-5.28); RED CELL DISTRIBUTION WIDTH 23.4 % (11.5-14.0); SEGMENTED NEUTROPHILS % (AUTO) 49.2 % (42-78); TOTAL CELLS COUNTED % (AUTO) 100 %; WHITE BLOOD COUNT 6.3 10^3/uL (4.0-10.5)
[2019-06-14 01:55] LABS: ANISOCYTOSIS 3+; HYPOCHROMASIA 1+; OVALOCYTES 1+; PLATELET COMMENT ADEQUATE; ROULEAUX 2+
[2019-06-14 02:32] LABS: ALBUMIN 3.4 g/dL (3.5-5.0); ALKALINE PHOSPHATASE 100 U/L (38-126); ANION GAP 6 (5-19); ASPARTATE AMINO TRANSFERASE 78 U/L (14-36); BILIRUBIN,DIRECT 0.1 mg/dL (0.0-0.4); BILIRUBIN,TOTAL 0.8 mg/dL (0.2-1.3); BLOOD UREA NITROGEN 9 mg/dL (7-20); CALCIUM 10.8 mg/dL (8.4-10.2); CARBON DIOXIDE 25 mmol/L (22-30); CHLORIDE 108 mmol/L (98-107); GLUCOSE 102 mg/dL (75-110); POTASSIUM 3.5 mmol/L (3.6-5.0); TOTAL PROTEIN 6.4 g/dL (6.3-8.2)
[2019-06-14 02:49] LABS: APPEARANCE,URINE CLEAR; BILIRUBIN,URINE NEGATIVE (NEGATIVE); COLOR,URINE STRAW; GLUCOSE, URINE NEGATIVE (NEGATIVE); KETONES,URINE NEGATIVE (NEGATIVE); LEUKOCYTE ESTERASE,URINE NEGATIVE (NEGATIVE); NITRITE,URINE NEGATIVE (NEGATIVE); PROTEIN,URINE NEGATIVE (NEGATIVE); URINE SPECIFIC GRAVITY 1.002; UROBILINOGEN,URINE NEGATIVE mg/dL (<2.0)
[2019-06-14 02:54] VITALS: BP 126/95
== END 2019-06-14 03:15 | disposition home or self-care (01) ==
LOC: ER 22:56
DX: M19.91 Primary osteoarthritis, unspecified site (principal); F17.200 Nicotine dependence, unspecified, uncomplicated; J44.9 Chronic obstructive pulmonary disease, unspecified; Z88.8 Allergy status to other drugs, medicaments and biological substances; Z88.5 Allergy status to narcotic agent; Z88.6 Allergy status to analgesic agent; Z85.41 Personal history of malignant neoplasm of cervix uteri
CPT/HCPCS: 36415; 83735; 85025; 80053; 81001; A9270 ×2; 99283; J3490; J7512

== ENCOUNTER 2020-01-18 11:35 | Emergency (ER) | payer OTHER, MEDICARE, MEDICAID ==
[2020-01-18 11:56] VITALS: BP 119/63
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
== END 2020-01-18 13:30 | disposition home or self-care (01) ==
LOC: ER 11:35
DX: S16.1XXA Strain of muscle, fascia and tendon at neck level, initial encounter (principal); S20.211A Contusion of right front wall of thorax, initial encounter; M79.10 Myalgia, unspecified site; M54.6 Pain in thoracic spine; V89.2XXA Person injured in unspecified motor-vehicle accident, traffic, initial encounter; F17.210 Nicotine dependence, cigarettes, uncomplicated; I10 Essential (primary) hypertension; J44.9 Chronic obstructive pulmonary disease, unspecified
CPT/HCPCS: 99283; 99406

== ENCOUNTER 2020-02-23 12:42 | Emergency (ER) | payer MEDICARE, MEDICAID ==
[2020-02-23 12:48] VITALS: BP 108/47
--- NOTE | 2020-02-23 13:23 | ER Document Report ---
HPI - HPI Time Seen by Provider: 02/23/20 13:14 Pain Level: 5 Notes: CHIEF COMPLAINT: Sinus infection HPI: 59-year-old female presenting with sinus pain and ear pain. States sinus issues began about 2 weeks ago. States they are a yearly issue for her. States that she has not had any definitive fever but does report continued congestion and pain in the face despite using antihistamines and nasal sprays. Left ear pain began 2 days ago. Has not seen her PCP for evaluation of the symptoms. Does report history of asthma ROS: See HPI - all other systems were reviewed and are otherwise negative Constitutional: no fever Eyes: no drainage, no blurred vision ENT: +, Positive ear pain runny nose, no sore throat Cardiovascular: no chest pain Resp: no SOB, positive cough GI: no vomiting, no diarrhea, no abdominal pain : no dysuria Integumentary: no rash Allergy: no hives Musculoskeletal: no extremity pain or swelling Neurological: no numbness/tingling, no weakness MEDICATIONS: I agree with the patient medications as charted by the RN. ALLERGIES: I agree with the allergies as charted by the RN. PAST MEDICAL HISTORY/PAST SURGICAL HISTORY: Reviewed and agree as charted by RN. SOCIAL HISTORY: Reviewed and agree as charted by RN. FAMILY HISTORY: No significant familial comorbid conditions directly related to patient complaint EXAM: Reviewed vital signs as charted by RN. CONSTITUTIONAL: Alert and oriented and responds appropriately to questions. Well-appearing; well-nourished HEAD: Normocephalic; atraumatic EYES: PERRL; Conjunctivae clear, sclerae non-icteric ENT: normal nose; positive clear rhinorrhea; moist mucous membranes; pharynx wit hout lesions noted, no uvula edema or deviation, no tonsillar hypertrophy, phonation normal. No facial swelling. Mild tenderness over the maxillary sinuses bilaterally NECK: Supple without meningismus; non-tender; no cervical lymphadenopathy, no masses CARD: RRR; no murmurs, no clicks, no rubs, no gallops; symmetric distal pulses RESP: Normal chest excursion without splinting or tachypnea; breath sounds noted to have slight expiratory wheezing posterior lung carias, no rhonchi, no rales, pulse oximetry 96% on room air not hypoxic ABD/GI: Normal bowel sounds; non-distended; soft, non-tender, no rebound, no guarding; no palpable organomegaly or masses. BACK: The back appears normal and is non-tender to palpation, there is no CVA tenderness EXT: Normal ROM in all joints; non-tender to palpation; no cyanosis, no effusions, no edema SKIN: Normal color for age and race; warm; dry; good turgor; no acute lesions noted NEURO: Moves all extremities equally; Motor and sensory function intact PSYCH: The patient's mood and manner are appropriate. Grooming and personal hygiene are appropriate. MDM: 59-year-old female presenting for evaluation of sinus pain for 2 weeks. This does fall within the guidelines of antibiotic treatment options. States amoxicillin usually works well with her. I will also put her on a course of dexamethasone follow-up PCP - EENT EENT: REPORTS: Ear Pain - RESPIRATORY Respiratory: REPORTS: Coughing - REPRODUCTIVE Reproductive: DENIES: : Past Medical History - Social History Smoking Status: Current Every Day Smoker Chew tobacco use (# tins/day): No Frequency of alcohol use: None Drug Abuse: None Family History: Reviewed & Not Pertinent Patient has homicidal ideation: No - Past Medical History Cardiac Medical History: Reports: Hx Hypertension Pulmonary Medical History: Reports: Hx Asthma, Hx Bronchitis, Hx COPD, Hx Pneumonia Renal/ Medical History: Reports: Hx Kidney Stones. Denies: Hx Peritoneal Dialysis Malignancy Medical History: Reports: Hx Cervical Cancer GI Medical History: Reports: Hx Diverticulitis, Hx Gastritis, Hx Gastroesophageal Reflux Disease, Hx Hepatitis - c Musculoskeletal Medical History: Reports Hx Arthritis, Reports Hx Musculoskeletal Deformity, Reports Hx Musculoskeletal Trauma - Rotator cuff bilateral , partial toe amputation Psychiatric Medical History: Reports: Hx Attention Deficit Hyperactivity Disorder, Hx Bipolar Disorder, Hx Depression, Hx Obsessive Compulsive Disorder Traumatic Medical History: Reports: Hx Fractures Infectious Medical History: Reports: Hx Hepatitis - c Past Surgical History: Reports: Hx Section - x1, Hx Cholecystectomy, Hx Hysterectomy, Hx Kidney (Renal Surgery) - stent, Hx Nose Surgery - Sinus repair, Hx Orthopedic Surgery - Right Rotator cuff repair. - Immunizations Immunizations up to date: No Hx Diphtheria, Pertussis, Tetanus Vaccination: Yes Vertical Provider Document - INFECTION CONTROL TRAVEL OUTSIDE OF THE [place] IN LAST 30 DAYS: No Course - Vital Signs Vital signs: Temp Pulse Resp BP Pulse Ox 98.6 F 58 L 20 108/47 L 95 02/23/20 13:13 02/23/20 12:47 02/23/20 12:47 02/23/20 12:47 02/23/20 12:47 Discharge - Discharge Clinical Impression: Sinusitis, acute maxillary Qualifiers: Recurrence: non-recurrent Qualified Code(s): J01.00 - Acute maxillary sinusitis, unspecified Condition: Stable Disposition: HOME, SELF-CARE Instructions: Sinusitis ([facility]) Additional Instructions: Continue previous antihistamines. Take the antibiotics and steroids as prescribed follow-up with your primary care provider for reevaluation of symptoms Prescriptions: Amoxicillin 1 tab PO TID #30 tab Dexamethasone [Decadron 4 Mg Tablet] 4 mg PO DAILY #7 tablet Referrals: CASS CASTRO MD [[facility]ED STAFF] - Follow up as needed
== END 2020-02-23 13:25 | disposition home or self-care (01) ==
LOC: ER 12:42
DX: J01.00 Acute maxillary sinusitis, unspecified (principal); H92.02 Otalgia, left ear; F17.200 Nicotine dependence, unspecified, uncomplicated; I10 Essential (primary) hypertension; J44.9 Chronic obstructive pulmonary disease, unspecified; Z87.442 Personal history of urinary calculi
CPT/HCPCS: 99283